=== PATIENT | male | born 1930 | race Caucasian/White ===

== ENCOUNTER 2016-11-15 20:23 | Inpatient (IN) | payer OTHER ==
--- NOTE | 2016-11-15 20:31 | PDOC ---
History of Present Illness - General History Source: Patient, Family Exam Limitations: No Limitations - History of Present Illness Initial Comments: 11/15/16 21:22 The patient is a 86 year old male with significant past medical history of CVA 2x, hypertension, hyperlipidemia, diabetes with peripheral neuropathy, BPH, and GERD who presents to the ED BIBA from home with changes in mental status prior to arrival. As per family, at bedside, patients last known well was around 6pm by his . Son states he saw patient earlier today and he was in his usual state of health. Just prior to arrival, patient called son when he noted he sounded disoriented and not himself. Family went to patients house and noted changes in mental status and states patient was confused. According to family, patient is alert and oriented at baseline. However, due to his history of strokes in the past, they became concerned and brought patient to the ER. At time of evaluation, patient has no complaints and denies blurry vision, dizziness, and headache. The patient denies fever, chills, cough, SOB, chest pain, and palpitations. The patient denies abdominal pain, nausea, vomiting, and diarrhea. Allergies: NKDA Social History: No alcohol, tobacco, or drug use reported. Past Surgical History: Hernia repair, cholecystectomy, pituitary mass removal ( several years ago) PCP: Dr. Wilian Zhou GI: Dr. Tristan Avalos <Eunice Tripp - Last Filed: 11/16/16 03:57> <Iliana Santizo - Last Filed: 11/16/16 05:07> - General Stated Complaint: POSSIBLE STROKE Time Seen by Provider: 11/15/16 20:30 Past History <Eunice Tripp - Last Filed: 11/16/16 03:57> - Past Medical History Anemia: No Asthma: No Cardiac Disorders: Yes (CAD) CVA: Yes (06/2012) COPD: No CHF: No Dementia: No Diabetes: Yes (IDDM) GI Disorders: Yes (GERD;DIVERTICULITIS; HEMORROIDS) Disorders: No HTN: Yes Hypercholesterolemia: No Liver Disease: No Suicide Attempt (Hx): No Seizures: No Thyroid Disease: No - Surgical History Abdominal Surgery: No Appendectomy: No Cardiac Surgery: No Cholecystectomy: No GI Surgery: Yes (Haital hernia 2004) Lung Surgery: No Neurologic Surgery: No - Immunization History Immunization Up to Date: Yes - Psycho/Social/Smoking Cessation Hx Anxiety: No Suicidal Ideation: No Smoking History: Never smoked Have you smoked in the past 12 months: No Hx Alcohol Use: No Drug/Substance Use Hx: No Substance Use Type: None <Iliana Santizo - Last Filed: 11/16/16 05:07> - Past Medical History Allergies/Adverse Reactions: Allergies Allergy/AdvReac Type Severity Reaction Status Date / Time No Known Allergies Allergy Verified 11/15/16 20:33 Home Medications: Ambulatory Orders Acetaminophen [Tylenol] 325 mg PO PRN PRN 11/15/16 Gabapentin [Neurontin] 300 mg PO BID 11/15/16 Losartan Potassium [Cozaar] 100 mg PO DAILY 11/15/16 Lubiprostone [Amitiza] 8 mcg PO DAILY 11/15/16 Metformin HCl [Metformin HCl ER] 500 mg PO DAILY 11/15/16 Metoprolol Succinate [Toprol Xl -] 25 mg PO DAILY 11/15/16 Rosuvastatin Calcium [Crestor] 40 mg PO DAILY 11/15/16 Solifenacin Succinate [Vesicare -] 10 mg PO DAILY 11/15/16 Tamsulosin HCl [Flomax -] 4 mg PO BID 11/15/16 Trazodone HCl 50 mg PO HS 11/15/16 Review of Systems - Review of Systems Able to Perform ROS?: Yes Comments:: 11/15/16 21:22 CONSTITUTIONAL: Absent: fever, chills, diaphoresis, generalized weakness, malaise, loss of appetite HEENT: Absent: rhinorrhea, nasal congestion, throat pain, throat swelling, difficulty swallowing, mouth swelling, ear pain, eye pain, visual Changes CARDIOVASCULAR: Absent: chest pain, syncope, palpitations, irregular heart rate, lightheadedness , peripheral edema RESPIRATORY: Absent: cough, shortness of breath, dyspnea with exertion, orthopnea, wheezing, stridor, hemoptysis GASTROINTESTINAL: Absent: abdominal pain, abdominal distension, nausea, vomiting, diarrhea, constipation, melena, hematochezia GENITOURINARY: Absent: dysuria, frequency, urgency, hesitancy, hematuria, flank pain, genital pain MUSCULOSKELETAL: Absent: myalgia, arthralgia, joint swelling SKIN: Absent: rash, itching, pallor NEUROLOGIC: +changes in mental status Absent: headache, focal weakness or paresthesias, dizziness, unsteady gait, seizure, bladder or bowel incontinence PSYCHIATRIC: Absent: anxiety, depression, suicidal or homicidal ideation, hallucinations. <JoseeEunice - Last Filed: 11/16/16 03:57> *Physical Exam - Vital Signs Last Vital Signs Temp Pulse Resp BP Pulse Ox 81 18 154/102 97 11/15/16 20:33 11/15/16 20:33 11/15/16 20:33 11/15/16 20:33 - Physical Exam Comments: 11/16/16 00:49 GENERAL: Well developed, well nourished. Awake and alert. No acute distress. HEENT: Normocephalic, atraumatic. PERRLA, EOMI. No conjunctival pallor. Sclera are non- icteric. Moist mucous membranes. Oropharynx is clear. NECK: Supple. Full ROM. No JVD. Carotid pulses 2+ and symmetric, without bruits. No thyromegaly. No lymphadenopathy. CARDIOVASCULAR: Regular rate and rhythm. No murmurs, rubs, or gallops. Distal pulses are 2+ and symmetric. PULMONARY: No evidence of respiratory distress. Lungs clear to auscultation bilaterally. No wheezing, rales or rhonchi. ABDOMINAL: Soft. Non-tender. Non-distended. No rebound or guarding. No organomegaly. Normoactive bowel sounds. MUSCULOSKELETAL Normal range of motion at all joints. No bony deformities or tenderness. No CVA tenderness. EXTREMITIES: No cyanosis. No clubbing. No edema. No calf tenderness. SKIN: Warm and dry. Normal capillary refill. No rashes. No jaundice. NEUROLOGICAL: Alert, awake, appropriate. Cranial nerves 2-12 intact. No deficits to light touch and temperature in face, upper extremities and lower extremities. No motor deficits in the in face, upper extremities and lower extremities. Normoreflexic in the upper and lower extremities. Normal speech. Moving all extremities. PSYCHIATRIC: Cooperative. Good eye contact. Appropriate mood and affect. <Eunice Tripp - Last Filed: 11/16/16 03:57> NIH Stroke Scale - Last Known Well Date/Time & Onset Date Last Known Well: 11/15/16 Time Last Known Well: 18:00 - Initial Evaluation Level of consciousness: Alert Ask patient the month and their age: Answers both correctly Ask patient to open & close eyes; make fist and let go: Obeys both correctly Best gaze (horizontal eye movement): Normal Visual field testing: No visual field loss Facial paresis (Show teeth/raise eyebrows/close eyes tight): Normal symmetrical movement Motor Function: Left Arm: Normal Motor Function: Right Arm: Normal (extends arm 90 (or 45) degrees for 10 seconds without drift Motor Function: Left Leg: Normal (extends leg 30 degrees for 5 seconds without drift) Motor Function: Right Leg: Normal (extends leg 30 degrees for 5 seconds without drift) Limb Ataxia: No ataxia Sensory(Use pinprick test arms,legs,trunk,face/side to side): Normal Best language (Describe picture, name items, read sentences): No Aphasia Dysarthria (read several words): Normal articulation Extinction and Inattention: No abnormality - Total Score NIH Stroke Scale Score: 0 <Iliana Santizo - Last Filed: 11/16/16 05:07> Heart Score/ECG Review - ECG Impressions Comment:: 11/16/16 03:57 Sinus rhythm with 1st degree AV block @76bpm Nonspecific T wave abnormality Abnormal ECG <Eunice Tripp - Last Filed: 11/16/16 03:57> Critical Care Time/MDM Note - Medical Decision Making Note: 11/15/16 21:35 CT/HEAD CT (STROKE) Radiologist's Impression: No CT evidence of intracranial hemorrhage. There is no acute infarct within the limitations of CT. A chronic left thalamic infarct is noted. This infarct was probably subacute at the time of a prior CT exam of . Mild periventricular microvascular ischemic gliosis is noted. As visualized on the previous CT study as well as on a brain MRI study of 2014 an approximately 1.7 cm soft tissue lesion is seen within the left lateral half of the sella turcica extending into the left cavernous sinus. Associated widening of the bony sella turcica is noted due to remodeling. There is mild suprasellar extension as on the prior study. 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 Correlate with serum prolactin level. No gross interval change is identified since the prior studies. No obstructive hydrocephalus. There is no extra-axial fluid collection. Impression: No definite CT evidence of acute pathology. Small chronic left thalamic infarct. Focal soft tissue enlargement involving the sella turcica and left cavernous sinus without gross interval change as discussed. <Eunice Tripp - Last Filed: 11/16/16 03:57> - Medical Decision Making Note: 11/16/16 01:35 P called his son and granddaughters and was not making sense. Family rushed to his home, and found that he was confused so they called EMS fearing that he had a stroke. Pt has a normal exam in the ER and he appears well. He will be admitted to telemetry for a stroke workup. Pt's CT scan is normal and labs are normal. Pt admitted to tele. He remains stable in the ER. EKG is NSR; 1st degree AV block CXR normal CT head WNL. Labs normal <Iliana Santizo - Last Filed: 11/16/16 05:07> Discharge Disposition - Post Discharge Activity Activity Comments: Documentation prepared by Eunice Tripp, acting as senior medical director for Iliana Santizo MD <Eunice Tripp - Last Filed: 11/16/16 03:57> - Discharge Dispostion Admit: Yes <Iliana Santizo - Last Filed: 11/16/16 05:07> - Diagnosis Cerebrovascular accident (CVA), Confusion and disorientation - Referrals
[2016-11-15 20:35] VITALS: BMI 27.2
[2016-11-15 22:45] LABS: BASOPHIL 0.5 % (0-2.0); EOSINOPHIL 0.8 % (0-4.5); MCH 29.2 pg (25.7-33.7); MCHC 32.8 g/dl (32.0-35.9); MEAN CELL VOLUME 89.1 fl (80-96); NEUTROPHILS 67.3 % (42.8-82.8); PLATELET COUNT 129 K/MM3 (134-434); RDW 15.1 % (11.9-15.9); WHITE BLOOD COUNT 6.8 K/mm3 (4.0-10.0)
[2016-11-15 22:51] LABS: URINE APPEARANCE CLEAR; URINE BILIRUBIN NEGATIVE (NEGATIVE); URINE BLOOD NEGATIVE (NEGATIVE); URINE COLOR STRAW; URINE GLUCOSE (UA) NEGATIVE (NEGATIVE); URINE KETONE NEGATIVE (NEGATIVE); URINE LEUK ESTERASE NEGATIVE (NEGATIVE); URINE NITRITE NEGATIVE (NEGATIVE); URINE PROTEIN NEGATIVE (NEGATIVE); URINE UROBILINOGEN NEGATIVE E.U./dl (0.2-1.0)
[2016-11-15 22:58] LABS: INR 1.06 (0.82-1.09); PROTHROMBIN TIME (PATIENT) 11.7 SEC (9.98-11.88)
[2016-11-15 23:15] LABS: ALBUMIN 3.5 g/dl (3.4-5.0); ANION GAP 8 (8-16); BILIRUBIN,TOTAL 0.7 mg/dL (0.2-1.0); CALCIUM 8.8 mg/dL (8.5-10.1); CO2 28 mmol/L (21-32); CREATININE 1.1 mg/dL (0.7-1.3); GLUCOSE,RANDOM 110 mg/dL (74-106); SGOT/AST 16 U/L (15-37); SGPT/ALT 17 U/L (12-78)
[2016-11-15 23:18] LABS: ALK PHOS 47 U/L (45-117); TROPONIN I < 0.02 ng/ml (0.00-0.05)
--- NOTE | 2016-11-15 23:45 | PN ---
[id number] and evaluated the patient. I reviewed the resident's note and discussed the case with the resident. I agree with the resident's findings and plan as documented. SUBJECTIVE: The patient is a 86 year old male with significant past medical history of CVA x2 (most recently 10/09), hypertension, hyperlipidemia, diabetes, peripheral neuropathy, and BPH who presented with altered mental status. Patient denies chest pain, chest pressure, blurry vision, dizziness, headache, and nausea. OBJECTIVE: Vital Signs: Last Vital Signs Temp Pulse Resp BP Pulse Ox 81 18 154/102 97 11/15/16 20:33 11/15/16 20:33 11/15/16 20:33 11/15/16 20:33 Physical Exam: GEN: NAD. Well nourished elderly male resting in bed. HEENT: NCAT, PERRL NEURO: Cranial nerves 2-12 intact. Muscle strength 5/5 in upper and lower extremities bilaterally. CARD: RRR, S1 S2 RESP: CTAB ABD: NT, BWS x4 EXT: - CCE Labs: CBCD WBC 6.8 K/mm3 (4.0-10.0) 11/15/16 22:33 RBC 4.98 M/mm3 (4.00-5.60) 11/15/16 22:33 Hgb 14.6 GM/dL (11.7-16.9) D 11/15/16 22:33 Hct 44.4 % (35.4-49) 11/15/16 22:33 MCV 89.1 fl (80-96) 11/15/16 22:33 MCHC 32.8 g/dl (32.0-35.9) 11/15/16 22:33 RDW 15.1 % (11.9-15.9) 11/15/16 22:33 Plt Count 129 K/MM3 (134-434) L D 11/15/16 22:33 MPV 9.0 fl (7.5-11.1) 11/15/16 22:33 CMP Sodium 143 mmol/L (136-145) 11/15/16 22:33 Potassium 4.1 mmol/L (3.5-5.1) 11/15/16 22:33 Chloride 107 mmol/L (98-107) 11/15/16 22:33 Carbon Dioxide 28 mmol/L (21-32) 11/15/16 22:33 Anion Gap 8 (8-16) 11/15/16 22:33 BUN 11 mg/dL (7-18) D 11/15/16 22:33 Creatinine 1.1 mg/dL (0.7-1.3) 11/15/16 22:33 Creat Clearance w eGFR > 60 (>60) 11/15/16 22:33 Calcium 8.8 mg/dL (8.5-10.1) 11/15/16 22:33 Total Bilirubin 0.7 mg/dL (0.2-1.0) 11/15/16 22:33 AST 16 U/L (15-37) 11/15/16 22:33 ALT 17 U/L (12-78) D 11/15/16 22:33 Alkaline Phosphatase 47 U/L (45-117) 11/15/16 22:33 Total Protein 6.0 g/dl (6.4-8.2) L 11/15/16 22:33 Albumin 3.5 g/dl (3.4-5.0) 11/15/16 22:33 Imaging: Head CT. Impression: No definite CT evidence of acute pathology. Small chronic left thalamic infarct. Focal soft tissue enlargement involving the sella turcica and left cavernous sinus without gross interval change as discussed. ECG. Impression: Normal sinus 1st deg block. Q waves in inferior leads. QTC 400. ASSESSMENT AND PLAN: The patient is a 86 year old male with significant past medical history of CVA x2, hypertension, hyperlipidemia, diabetes, peripheral neuropathy and BPH who presented with mental status changes, being admitted to stroke tele for possible CVA/TIA. 1.CVA/TIA -MRI Brain -ECHO -Carotid US -Continue with aspirin -Taken off Aggrenox (unknow why) -Lipid Panel -A1C -Continue with statin -Neuro consult -Stroke scale 0 2. Chest Pain -Heart score 5 -Trend Troponin/ECG -Cardiology consult -Nitro/Morphine PRN chest pain - Continue with statin and beta gricelda 3. HLD -Continue home medications -Continue statin 4. HTN Continue home medications 5. Diabetes -Finger sticks -Sliding scale 6. BPH Continue Flomax 7. DVT PPX -SCDs Admit to stroke tele. Documentation prepared by Waldo Jackson, acting as bilingual medical assistant for Dr. Deedee MD <Marko Mark - Last Filed: 11/16/16 06:18> Teaching Attending Note Name of Resident: Jackie Simmons
--- NOTE | 2016-11-16 00:12 | HP ---
Addendum entered and electronically signed by Jackie Simmons RES 11/16/16 03:30 : -Repeat Troponin negative -Patient's chest pain resolved after sublingual nitroglycerine -EKG revealed no changes from prior one done in the last 24 hours -Repeat Vitals: 98.1 F, 75 NJ, 135/89 mmHg, 18RR, and 98% on 2L NC -Will continue Cardiac monitoring Addendum entered and electronically signed by Jackie Simmons RES 11/16/16 02:45 : ER nurse called and informed us that patient is complaining of chest pain. I went down to the ED to evaluate patient who was complaining of left sided chest tightness that began suddenly. Patient reports he is very uncomfortable. However, patient denies shortness of breath, palpitations, or diaphoresis. On examination Heart was regular rate and rhythm with normal S1 and S2. Lungs were CTA bilaterally. Plan: Chest pain -STAT EKG -STAT Troponin -Sublingual Nitroglycerin 0.4mg given -Continue Cardiac monitoring -Repeat Vitals Original Note: CHIEF COMPLAINT: Confused and disoriented PCP: Dr. Wilian Zhou HISTORY OF PRESENT ILLNESS: Patient is an 86 year old male with a PMHx of HTN, HLD, DMII with peripheral neuropathy, CVA X2, GERD, and BPH who presented with acute vision change, disorientation and confusion. Patient's son at bedside who reports patient was in his usual state of health until 1744 today when he received a phone call from his with his father on the phone complaining of sudden blurry vision with confusion and disorientation while he was sitting down watching TV. Patient son reports that he usually dials his number on his own but today he was unable to recall his number. Symptoms of blurry vision, confusion and disorientation resolved within 15 minutes but the family was concerned due to previous CVA's and decided to bring him to the hospital. Patient at baseline is awake, alert, and completely oriented. When evaluating the patient, he denied any blurry vision, confusion, or disorientation. Patient also reports that this morning he went ot his PCP who prescribed him Metformin after stopping it for one year. Patient reports he took his first dose today and that he believes the Metformin caused him ot have this episode. Otherwise, he denies chest pain, palpitations, shortness of breath, fever, chills, nausea, vomiting, dizziness, lightheadedness, loss of consciousness, abnormal gait, numbness, tingling, headaches. ER course was notable for: (1) CT negative for acute pathology (2) (3) Recent Travel: No PAST MEDICAL HISTORY: HTN, HLD, DMII with peripheral neuropathy, CVA X2, GERD, and BPH PAST SURGICAL HISTORY: Hernia repair, cholecystectomy, pituitary mass removal Social History: Smoking: Denies Alcohol: Denies Drugs: Denies Family History: Denies Allergies: No Known Allergies Allergy (Verified 11/15/16 20:33) HOME MEDICATIONS: Medication Instructions Recorded Acetaminophen [Tylenol] 325 mg PO PRN PRN 11/15/16 Gabapentin [Neurontin] 300 mg PO BID 11/15/16 Losartan Potassium [Cozaar] 100 mg PO DAILY 11/15/16 Lubiprostone [Amitiza] 8 mcg PO DAILY 11/15/16 Metformin HCl [Metformin HCl ER] 500 mg PO DAILY 11/15/16 Metoprolol Succinate [Toprol Xl -] 25 mg PO DAILY 11/15/16 Rosuvastatin Calcium [Crestor] 40 mg PO DAILY 11/15/16 Solifenacin Succinate [Vesicare -] 10 mg PO DAILY 11/15/16 Tamsulosin HCl [Flomax -] 0.4 mg PO BID 11/15/16 Trazodone HCl 50 mg PO HS 11/15/16 REVIEW OF SYSTEMS CONSTITUTIONAL: Absent: fever, chills, diaphoresis, generalized weakness, malaise, loss of appetite, weight change HEENT: Present: Acute visual changes Absent: rhinorrhea, nasal congestion, throat pain, throat swelling, difficulty swallowing, mouth swelling, ear pain, eye pain CARDIOVASCULAR: Absent: chest pain, syncope, palpitations, irregular heart rate, lightheadedness , peripheral edema RESPIRATORY: Absent: cough, shortness of breath, dyspnea with exertion, orthopnea, wheezing, stridor, hemoptysis GASTROINTESTINAL: Absent: abdominal pain, abdominal distension, nausea, vomiting, diarrhea, constipation, melena, hematochezia GENITOURINARY: Absent: dysuria, frequency, urgency, hesitancy, hematuria, flank pain, genital pain MUSCULOSKELETAL: Absent: myalgia, arthralgia, joint swelling, back pain, neck pain SKIN: Absent: rash, itching, pallor HEMATOLOGIC/IMMUNOLOGIC: Absent: easy bleeding, easy bruising, lymphadenopathy, frequent infections ENDOCRINE: Absent: unexplained weight gain, unexplained weight loss, heat intolerance, cold intolerance NEUROLOGIC: Present: mental status changes Absent: headache, focal weakness or paresthesias, dizziness, unsteady gait, seizure, bladder or bowel incontinence PSYCHIATRIC: Absent: anxiety, depression, suicidal or homicidal ideation, hallucinations. PHYSICAL EXAMINATION Vital Signs - 24 hr 11/15/16 20:33 Pulse Rate 81 Respiratory 18 Rate Blood Pressure 154/102 O2 Sat by Pulse 97 Oximetry (%) GENERAL: Awake, alert, and fully oriented, in no acute distress. HEAD: Normal with no signs of trauma. EYES: Pupils equal, round and reactive to light, extraocular movements intact, sclera anicteric, conjunctiva clear. No lid lag. EARS, NOSE, THROAT: Ears normal, nares patent, oropharynx clear without exudates. Moist mucous membranes. NECK: Normal range of motion, supple without lymphadenopathy, JVD, or masses. LUNGS: Breath sounds equal, clear to auscultation bilaterally. No wheezes, and no crackles. No accessory muscle use. HEART: Regular rate and rhythm, normal S1 and S2 without murmur, rub or gallop. ABDOMEN: Soft, nontender, not distended, normoactive bowel sounds, no guarding, no rebound, no masses. No hepatomegaly or splenomegaly. MUSCULOSKELETAL: Normal range of motion at all joints. No bony deformities or tenderness. No CVA tenderness. UPPER EXTREMITIES: 2+ pulses, warm, well-perfused. No cyanosis. No clubbing. No peripheral edema. LOWER EXTREMITIES: 2+ pulses, warm, well-perfused. No calf tenderness. No peripheral edema. NEUROLOGICAL: Cranial nerves II-XII intact. No deficits to light touch and temperature in face, upper extremities and lower extremities. Motor strength 5/ 5 throughout with no deficits in the in face, upper extremities and lower extremities. Normoreflexic in the upper and lower extremities. Normal speech. Moving all extremities. PSYCHIATRIC: Cooperative. Good eye contact. Appropriate mood and affect. SKIN: Warm, dry, normal turgor, no rashes or lesions noted. Laboratory Results - last 24 hr 11/15/16 11/15/16 11/15/16 20:33 22:33 22:33 WBC 6.8 RBC 4.98 Hgb 14.6 D Hct 44.4 MCV 89.1 MCHC 32.8 RDW 15.1 Plt Count 129 L D MPV 9.0 Neutrophils % 67.3 Lymphocytes % 24.7 Monocytes % 6.7 Eosinophils % 0.8 Basophils % 0.5 INR Sodium Potassium Chloride Carbon Dioxide Anion Gap BUN Creatinine Creat Clearance w eGFR POC Glucometer 140.07114 Random Glucose Calcium Total Bilirubin AST ALT Alkaline Phosphatase Creatine Kinase Troponin I Total Protein Albumin Urine Color Straw Urine Appearance Clear Urine pH 6.0 Ur Specific [place]att 1.008 Urine Protein Negative Urine Glucose (UA) Negative Urine Ketones Negative Urine Blood Negative Urine Nitrite Negative Urine Bilirubin Negative Urine Urobilinogen Negative Ur Leukocyte Esterase Negative 11/15/16 11/15/16 22:33 22:33 WBC RBC Hgb Hct MCV MCHC RDW Plt Count MPV Neutrophils % Lymphocytes % Monocytes % Eosinophils % Basophils % INR 1.06 Sodium 143 Potassium 4.1 Chloride 107 Carbon Dioxide 28 Anion Gap 8 BUN 11 D Creatinine 1.1 Creat Clearance w eGFR > 60 POC Glucometer Random Glucose 110 H D Calcium 8.8 Total Bilirubin 0.7 AST 16 ALT 17 D Alkaline Phosphatase 47 Creatine Kinase 106 Troponin I < 0.02 Total Protein 6.0 L Albumin 3.5 Urine Color Urine Appearance Urine pH Ur Specific [place]att Urine Protein Urine Glucose (UA) Urine Ketones Urine Blood Urine Nitrite Urine Bilirubin Urine Urobilinogen Ur Leukocyte Esterase Head CT: No acute pathology. Small chronic left thalamic infarct. Focal soft tissue enlargement involving the sella turcica and left cavernous sinus without gross interval change as discussed. Chest X-ray: No acute pathology, (-) infiltrates, (-) effusions, no cardiomegaly. ASSESSMENT/PLAN: Patient is an 86 year old male with a PMHx of HTN, HLD, DMII with peripheral neuropathy, CVA X2, GERD, BPH, Anxiety/Depression who presented for altered mental status and acute blurry vision. Patient admitted to telemetry for further monitoring and management. Altered Mental Status with Blurry Vision -Possible CVA/TIA -Stroke Scale: 0 -Neurology consult placed -ASA 325mg daily -Home medication Crestor 40mg resumed -ECHO ordered -Carotid Doppler ordered -Brain MRI -Lipid Panel ordered -HBA1C ordered -Coagulations ordered -Patient was taken off Aggrenox by GI doctor with unknown reason according to patient HTN -Continue home medication Cozaar 100 mg daily -Continue Toprol XL 20mg daily HLD -Continue home medication Crestor 40mg daily -Lipid panel ordered DM II with Peripheral Neuropathy -Insulin sliding scale -BGM -Continue home medication Gabapentin 300mg BID -HBA1C ordered BPH -Continue Vesicare 10mg daily -Continue Flomax 0.4mg BID Anxiety/Depression -Continue Trazodone HCl 50mg daily F/E/N -On no fluids -Electrolytes wnl -Sodium/diabetes/cholesterol controlled diet Prophylaxis -SCD's for DVT -No GI needed Disposition -Full code -Will be monitored in telemetry. Awaiting for neurology evaluation and recommendations Visit type - Emergency Visit Emergency Visit: Yes ED Registration Date: 11/16/16 Care time: The patient presented to the Emergency Department on the above date and was hospitalized for further evaluation of their emergent condition. - New Patient This patient is new to me today: Yes Date on this admission: 11/16/16 - Critical Care Critical Care patient: No
[2016-11-16] MEDS ORDERED: NITROGLYCERIN SUBLINGUAL 1/150 0.4 MG TAB SL ONE (02:17)
[2016-11-16] MEDS: INSULIN SLIDING SCALE (NOVOLOG) 1 VIAL SQ SCH ×4 (07:03→21:01)
[2016-11-16 07:47] LABS: BASOPHIL 0.3 % (0-2.0); EOSINOPHIL 1.1 % (0-4.5); MCH 29.9 pg (25.7-33.7); MCHC 33.8 g/dl (32.0-35.9); MEAN CELL VOLUME 88.6 fl (80-96); MEAN PLT VOLUME 9.5 fl (7.5-11.1); PLATELET COUNT 122 K/MM3 (134-434)
[2016-11-16 07:51] LABS: INR 1.04 (0.82-1.09); PROTHROMBIN TIME (PATIENT) 11.4 SEC (9.98-11.88)
[2016-11-16 07:54] LABS: ACTIVATED PTT 32.4 SECONDS (26.9-34.4)
[2016-11-16 08:07] LABS: ALBUMIN 3.4 g/dl (3.4-5.0); ANION GAP 7 (8-16); CALCIUM 8.5 mg/dL (8.5-10.1); CHOLESTEROL 143 mg/dL (50-200); CO2 29 mmol/L (21-32); CREATININE 1.1 mg/dL (0.7-1.3); GLUCOSE,RANDOM 99 mg/dL (74-106); SGOT/AST 16 U/L (15-37); SGPT/ALT 18 U/L (12-78)
[2016-11-16 08:09] LABS: ALK PHOS 53 U/L (45-117); BILIRUBIN,TOTAL 0.7 mg/dL (0.2-1.0); LDL CHOLESTEROL (ONLY SJRH) 86 mg/dL (5-100); TOT PROT 6.1 g/dl (6.4-8.2)
[2016-11-16 08:11] LABS: TROPONIN I < 0.02 ng/ml (0.00-0.05)
[2016-11-16] MEDS ORDERED: PATIENT'S OWN MEDICATION (NON-FORMULARY) (Lubiprostone [Amitiza] 8 MCG) PO SCH (10:00)
[2016-11-16] MEDS ORDERED: TAMSULOSIN HCL 0.4 MG CAP.ER.24H (FP) PO SCH (10:00)
--- NOTE | 2016-11-16 10:23 | CONSULT ---
Consult Consult Specialty:: [facility] Referred by:: ER Reason for Consultation:: Vision problem - History of Present Illness History of Present Illness: 86 years old man with PMH 1. CAd 2. HTN, 3. HLD, 4. DMII with peripheral neuropathy, 5. CVA X2, 6. GERD, 7. 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 Cardio/Vascular: Yes: CAD, HTN Renal/: Yes: BPH Endocrine: Yes: Diabetes Mellitus - Alcohol/Substance Use Hx Alcohol Use: No - Smoking History Smoking history: Never smoked Have you smoked in the past 12 months: No Home Medications - Allergies Allergies/Adverse Reactions: Allergies Allergy/AdvReac Type Severity Reaction Status Date / Time No Known Allergies Allergy Verified 11/15/16 20:33 - Home Medications Home Medications: Ambulatory Orders Acetaminophen [Tylenol] 325 mg PO PRN PRN 11/15/16 Gabapentin [Neurontin] 300 mg PO BID 11/15/16 Losartan Potassium [Cozaar] 100 mg PO DAILY 11/15/16 Lubiprostone [Amitiza] 8 mcg PO DAILY 11/15/16 Metformin HCl [Metformin HCl ER] 500 mg PO DAILY 11/15/16 Metoprolol Succinate [Toprol Xl -] 25 mg PO DAILY 11/15/16 Rosuvastatin Calcium [Crestor] 40 mg PO DAILY 11/15/16 Solifenacin Succinate [Vesicare -] 10 mg PO DAILY 11/15/16 Tamsulosin HCl [Flomax -] 4 mg PO BID 11/15/16 Trazodone HCl 50 mg PO HS 11/15/16 Family Disease History - Family Disease History Family History: Unable to Obtain Review of Systems - Review of Systems Constitutional: reports: No Symptoms Eyes: reports: No Symptoms Physical Exam-Neuro Vital Signs: Vital Signs Temperature 98.1 F 11/16/16 00:12 Pulse Rate 69 11/16/16 08:25 Respiratory Rate 18 11/16/16 08:02 Blood Pressure 143/89 11/16/16 08:02 O2 Sat by Pulse Oximetry (%) 98 11/16/16 08:25 Constitutional: Yes: Well Nourished Neck: Yes: WNL Labs: CBC, BMP 11/16/16 06:30 11/16/16 06:30 INR, PTT INR 1.04 (0.82-1.09) 11/16/16 06:30 - Neuro Exam Level Of Consciousness: Yes: Oriented to Person, Oriented to Place, Oriented to Time Eyes: Yes: PERRLA Speech: WNL Dominant Hand: Right Cranial Nerves II-XII Intact: Yes Gag: Present DTR's: 0 Left Bicep, 0 Right Bicep, 0 Left Achilles, 0 Right Achilles, 1+ Left Brachioradialis, 1+ Right Brachioradialis Babinski: Absent Response to light touch: Abnormal Response to pain prick: Abnormal Response to temperature: Abnormal Response to vibration: Abnormal Imaging - Results Cat Scan: Image Reviewed Problem List - Problems (1) Cerebrovascular accident Code(s): I63.9 - CEREBRAL INFARCTION, UNSPECIFIED Assessment/Plan Patient was not a candidate for TPA 1. Neuro checks 2. MRI brain with no anabel 3 .Full ASA 4. Might need CTA 5. Lipid profile 5. Suggest optho eval 6. Tight BSL control 7. C peptide patient was not a candidate for TPA as symptoms resolved case discussed with son
--- NOTE | 2016-11-16 10:30 | EKG ---
Test Reason : Blood Pressure : / mmHG Vent. Rate : 076 BPM Atrial Rate : 076 BPM P-R Int : 274 ms QRS Dur : 088 ms QT Int : 376 ms P-R-T Axes : 044 023 047 degrees QTc Int : 423 ms SINUS RHYTHM WITH 1ST DEGREE A-V BLOCK NONSPECIFIC T WAVE ABNORMALITY ABNORMAL ECG WHEN COMPARED WITH ECG OF 24-JUN-2015 09:08, PREMATURE VENTRICULAR COMPLEXES ARE NO LONGER PRESENT BORDERLINE CRITERIA FOR INFERIOR INFARCT ARE NO LONGER PRESENT Confirmed by BRETT MCCORMICK MD ([id number]) on 11/16/2016 10:29:47 AM Referred By: Confirmed By:BRETT MCCORMICK MD
--- NOTE | 2016-11-16 10:52 | PN ---
Teaching Attending Note Name of Resident: Roberto Kim ATTENDING PHYSICIAN STATEMENT I saw and evaluated the patient. I reviewed the resident's note and discussed the case with the resident. I agree with the resident's findings and plan as documented. SUBJECTIVE: seen and evaluated at the bedside OBJECTIVE: mild weakness of right upper extremity when compared to left ASSESSMENT AND PLAN: 86 year old male with a PMHx of HTN, HLD, DMII with peripheral neuropathy, CVA X2, GERD, and BPH who presented with acute vision change, disorientation and confusion possibly due to TIA -pt is a good historian with what happened yesterday -states that symptoms lasted only a few seconds and then he was back to his baseline mental status -had no complaints at this time but has mild weakness of right upper extremity when compared to left -CT head negative -follow up carotid dopplers -follow up echo -follow up with Neuro attending for possible MRI -cont statin -cont ASA
--- NOTE | 2016-11-16 11:10 | PN ---
Physical Exam: SUBJECTIVE: Patient seen and examined at bedside in ER. Pt states he feels well currently and denies any symptoms at the moment. Denies N/V/F/C, dizziness, light-headedness, chest pain, palpitations, dysuria, or SOB. He states prior to coming to hospital he felt dizzy and had blurry vision for a few seconds and it resolved on its own. OBJECTIVE: Vital Signs Temperature 98.1 F 11/16/16 12:30 Pulse Rate 68 11/16/16 12:30 Respiratory Rate 18 11/16/16 12:30 Blood Pressure 152/94 11/16/16 12:30 O2 Sat by Pulse Oximetry (%) 98 11/16/16 12:15 GENERAL: The patient is awake, alert, and fully oriented, in no acute distress. HEAD: Normal with no signs of trauma. EYES: PERRL, extraocular movements intact, sclera anicteric, conjunctiva clear. No ptosis. ENT: Ears normal, nares patent, oropharynx clear without exudates, moist mucous membranes. NECK: Trachea midline, full range of motion, supple. LUNGS: Breath sounds equal, clear to auscultation bilaterally, no wheezes, no crackles, no accessory muscle use. HEART: Regular rate and rhythm, S1, S2 without murmur, rub or gallop. ABDOMEN: Soft, nontender, nondistended, normoactive bowel sounds, no guarding, no rebound, no hepatosplenomegaly, no masses. EXTREMITIES: 2+ pulses, warm, well-perfused, no edema. MSK: RUE 4/5 strength. LUE 5/5 strength. NEUROLOGICAL: Normal speech, gait not observed. PSYCH: Normal mood, normal affect. SKIN: Warm, dry, normal turgor, no rashes or lesions noted Laboratory Results - last 24 hr 11/16/16 11/16/16 11/16/16 02:34 06:30 06:30 WBC 6.0 RBC 4.82 Hgb 14.4 Hct 42.7 MCV 88.6 MCHC 33.8 RDW 15.0 Plt Count 122 L MPV 9.5 Neutrophils % 63.0 Lymphocytes % 28.5 Monocytes % 7.1 Eosinophils % 1.1 Basophils % 0.3 INR 1.04 PTT (Actin FS) 32.4 Sodium Potassium Chloride Carbon Dioxide Anion Gap BUN Creatinine Creat Clearance w eGFR POC Glucometer Random Glucose Hemoglobin A1c % Calcium Total Bilirubin AST ALT Alkaline Phosphatase Creatine Kinase Troponin I < 0.02 Total Protein Albumin Triglycerides Cholesterol Total LDL Cholesterol HDL Cholesterol 11/16/16 11/16/16 11/16/16 06:30 06:30 06:30 WBC RBC Hgb Hct MCV MCHC RDW Plt Count MPV Neutrophils % Lymphocytes % Monocytes % Eosinophils % Basophils % INR PTT (Actin FS) Sodium 143 Potassium 4.1 Chloride 107 Carbon Dioxide 29 Anion Gap 7 L BUN 10 Creatinine 1.1 Creat Clearance w eGFR > 60 POC Glucometer Random Glucose 99 Hemoglobin A1c % 6.7 H Calcium 8.5 Total Bilirubin 0.7 AST 16 ALT 18 Alkaline Phosphatase 53 Creatine Kinase 85 Troponin I < 0.02 Total Protein 6.1 L Albumin 3.4 Triglycerides 164 H Cholesterol 143 Total LDL Cholesterol 86 HDL Cholesterol 31 L 11/16/16 06:51 WBC RBC Hgb Hct MCV MCHC RDW Plt Count MPV Neutrophils % Lymphocytes % Monocytes % Eosinophils % Basophils % INR PTT (Actin FS) Sodium Potassium Chloride Carbon Dioxide Anion Gap BUN Creatinine Creat Clearance w eGFR POC Glucometer 102.83554 Random Glucose Hemoglobin A1c % Calcium Total Bilirubin AST ALT Alkaline Phosphatase Creatine Kinase Troponin I Total Protein Albumin Triglycerides Cholesterol Total LDL Cholesterol HDL Cholesterol Active Medications Generic Name Dose Route Start Last Admin Trade Name Freq PRN Reason Stop Dose Admin Aspirin 325 mg 11/16/16 10:00 Asa - PO DAILY [facility] Gabapentin 300 mg 11/16/16 10:00 Neurontin - PO BID [facility] Insulin Aspart 1 vial 11/16/16 07:00 11/16/16 07:03 Novolog Vial Sliding Scale - SQ Not Given ACHS [facility] Protocol Losartan Potassium 100 mg 11/16/16 10:00 Cozaar - PO DAILY [facility] Metoprolol Succinate 25 mg 11/16/16 10:00 Toprol Xl - PO DAILY [facility] Non-Formulary Medication 8 mcg 11/16/16 10:00 Lubiprostone [Amitiza] PO DAILY [facility] Rosuvastatin Calcium 40 mg 11/16/16 22:00 Crestor - PO HS [facility] Solifenacin 10 mg 11/16/16 10:00 Vesicare - PO DAILY [facility] Tamsulosin HCl 0.4 mg 11/16/16 08:30 Flomax - PO BID@0830,2200 [facility] Trazodone HCl 50 mg 11/16/16 22:00 Desyrel - PO [facility] ASSESSMENT/PLAN: Patient is an 86 year old male with a PMHx of HTN, HLD, DMII with peripheral neuropathy, CVA X2, GERD, BPH, Anxiety/Depression who presented for altered mental status and acute blurry vision. -AMS secondary to most likely CVA/TIA -head ct negative for acute pathology -carotid U/S - no hemodynamically significant stenosis B/L -EKG: Sinus rhythm with 1st degree block. -f/u Echo, MRI brain w/o contrast -c/w crestor 40 mg PO qhs -c/w ASA 325 mg PO qd -pt is back at baseline mental status -neuro and cardio on board -HTN -c/w cozaar 100mg po qd, toprol xl 25 mg po qd -HLD -c/w crestor 40 mg po qhs -lipids: -cholesterol 143, HDL 31, LDL 86 -DM II -A1C: 6.7 -ISS, BGMs -Peripheral neuropathy -c/w gabapentin 300 mg PO bid -BPH -Cc/w Vesicare 10mg daily -c/w Flomax 0.4mg BID -Anxiety/Depression -c/w Trazodone HCl 50mg daily -FEN -sodium/diabetes/cholesterol controlled diet -DVT ppx -SCDs -Dispo: -Monitor on floors. Awaiting results of MRI and Echo as of now. Problem List - Problems (1) Cerebrovascular accident (CVA) Code(s): I63.9 - CEREBRAL INFARCTION, UNSPECIFIED (2) Confusion and disorientation Code(s): F99 - MENTAL DISORDER, NOT OTHERWISE SPECIFIED (3) Cerebrovascular accident Code(s): I63.9 - CEREBRAL INFARCTION, UNSPECIFIED (4) Diabetes Code(s): E11.9 - TYPE 2 DIABETES MELLITUS WITHOUT COMPLICATIONS (5) HTN (hypertension) Code(s): I10 - ESSENTIAL (PRIMARY) HYPERTENSION Visit type - Emergency Visit Emergency Visit: Yes ED Registration Date: 11/16/16 Care time: The patient presented to the Emergency Department on the above date and was hospitalized for further evaluation of their emergent condition. - New Patient This patient is new to me today: Yes Date on this admission: 11/16/16 - Critical Care Critical Care patient: No
--- NOTE | 2016-11-16 11:15 | CONSULT ---
Consult Consult Specialty:: Cardiology - History of Present Illness History of Present Illness: The patient is a 86 year old male with significant past medical history of CVA 2x, hypertension, hyperlipidemia, diabetes with peripheral neuropathy, BPH, and GERD who presents to the ED BIBA from home with changes in mental status prior to arrival. As per family, at bedside, patients last known well was around 6pm by his . Son states he saw patient earlier today and he was in his usual state of health. Just prior to arrival, patient called son when he noted he sounded disoriented and not himself. Family went to patients house and noted changes in mental status and states patient was confused. According to family, patient is alert and oriented at baseline. However, due to his history of strokes in the past, they became concerned and brought patient to the ER. At time of evaluation, patient has no complaints and denies blurry vision, dizziness, and headache. The patient denies fever, chills, cough, SOB, chest pain, and palpitations. The patient denies abdominal pain, nausea, vomiting, and diarrhea. Allergies: NKDA Social History: No alcohol, tobacco, or drug use reported. Past Surgical History: Hernia repair, cholecystectomy, pituitary mass removal ( several years ago) PCP: Dr. Wilian Zhou GI: Dr. 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 Cardio/Vascular: Yes: CAD, HTN Renal/: Yes: BPH Endocrine: Yes: Diabetes Mellitus - Alcohol/Substance Use Hx Alcohol Use: No - Smoking History Smoking history: Never smoked Have you smoked in the past 12 months: No Home Medications - Allergies Allergies/Adverse Reactions: Allergies Allergy/AdvReac Type Severity Reaction Status Date / Time No Known Allergies Allergy Verified 11/15/16 20:33 - Home Medications Home Medications: Ambulatory Orders Acetaminophen [Tylenol] 325 mg PO PRN PRN 11/15/16 Gabapentin [Neurontin] 300 mg PO BID 11/15/16 Losartan Potassium [Cozaar] 100 mg PO DAILY 11/15/16 Lubiprostone [Amitiza] 8 mcg PO DAILY 11/15/16 Metformin HCl [Metformin HCl ER] 500 mg PO DAILY 11/15/16 Metoprolol Succinate [Toprol Xl -] 25 mg PO DAILY 11/15/16 Rosuvastatin Calcium [Crestor] 40 mg PO DAILY 11/15/16 Solifenacin Succinate [Vesicare -] 10 mg PO DAILY 11/15/16 Tamsulosin HCl [Flomax -] 4 mg PO BID 11/15/16 Trazodone HCl 50 mg PO HS 11/15/16 Review of Systems - Review of Systems Constitutional: reports: No Symptoms Eyes: reports: No Symptoms HENT: reports: No Symptoms Neck: reports: No Symptoms Cardiovascular: reports: Chest Pain Gastrointestinal: reports: No Symptoms Genitourinary: reports: No Symptoms Breasts: reports: No Symptoms Reported Musculoskeletal: reports: No Symptoms Integumentary: reports: No Symptoms Neurological: reports: No Symptoms Endocrine: reports: No Symptoms Hematology/Lymphatic: reports: No Symptoms Psychiatric: reports: No Symptoms Vital Signs: Vital Signs Temperature 98.1 F 11/16/16 00:12 Pulse Rate 69 11/16/16 08:25 Respiratory Rate 18 11/16/16 08:02 Blood Pressure 143/89 11/16/16 08:02 O2 Sat by Pulse Oximetry (%) 98 11/16/16 08:25 Constitutional: Yes: Well Nourished, No Distress, Calm Eyes: Yes: WNL, Conjunctiva Clear, EOM Intact HENT: Yes: WNL, Atraumatic, Normocephalic Neck: Yes: WNL, Supple, Trachea Midline Respiratory: Yes: WNL, Regular, CTA Bilaterally Gastrointestinal: Yes: WNL, Normal Bowel Sounds Renal/: Yes: WNL Cardiovascular: Yes: WNL, Regular Rate and Rhythm Musculoskeletal: Yes: WNL Extremities: Yes: WNL Integumentary: Yes: WNL Neurological: Yes: WNL, Alert, Oriented ...Motor Strength: WNL Psychiatric: Yes: WNL, Alert, Oriented - Other Data Labs, Other Data: CBC, BMP 11/16/16 06:30 11/16/16 06:30 INR, PTT INR 1.04 (0.82-1.09) 11/16/16 06:30 Troponin, BNP 11/16/16 11/16/16 02:34 06:30 Troponin I < 0.02 < 0.02 Troponin, BNP 11/16/16 11/16/16 02:34 06:30 Troponin I < 0.02 < 0.02 Imaging - Results Chest X-ray: Image Reviewed (no i/e) EKG: Pending Problem List - Problems (1) Cerebrovascular accident (CVA) Code(s): I63.9 - CEREBRAL INFARCTION, UNSPECIFIED (2) Confusion and disorientation Code(s): F99 - MENTAL DISORDER, NOT OTHERWISE SPECIFIED (3) Cerebrovascular accident Code(s): I63.9 - CEREBRAL INFARCTION, UNSPECIFIED (4) Diabetes Code(s): E11.9 - TYPE 2 DIABETES MELLITUS WITHOUT COMPLICATIONS (5) HTN (hypertension) Code(s): I10 - ESSENTIAL (PRIMARY) HYPERTENSION (6) Left arm numbness Code(s): R20.0 - ANESTHESIA OF SKIN (7) Rectal bleed Code(s): K62.5 - HEMORRHAGE OF ANUS AND RECTUM Assessment/Plan cva dm htn chest pain hld plan echo telemetry EKG stat f/u neuro
[2016-11-16] MEDS: TAMSULOSIN HCL 0.4 MG CAP.ER.24H (FP) PO SCH ×2 (11:20→21:00)
[2016-11-16] MEDS: ASPIRIN 325 MG TABLET PO SCH (11:21)
[2016-11-16] MEDS: GABAPENTIN 300 MG CAPSULE (FP) PO SCH ×2 (11:21→21:00)
[2016-11-16] MEDS: LOSARTAN POTASSIUM 50 MG TABLET (FP) PO SCH (11:21)
[2016-11-16] MEDS: METOPROLOL SUCCINATE 25 MG TAB.SR.24H (FP) PO SCH (11:21)
[2016-11-16] MEDS: SOLIFENACIN SUCCINATE 5 MG TAB (FP) PO SCH (11:21)
--- NOTE | 2016-11-16 11:53 | EKG ---
Test Reason : Blood Pressure : / mmHG Vent. Rate : 076 BPM Atrial Rate : 076 BPM P-R Int : 292 ms QRS Dur : 092 ms QT Int : 356 ms P-R-T Axes : 036 -22 027 degrees QTc Int : 400 ms SINUS RHYTHM WITH 1ST DEGREE A-V BLOCK INFERIOR INFARCT (CITED ON OR BEFORE 24-JUN-2015) ABNORMAL ECG WHEN COMPARED WITH ECG OF 24-JUN-2015 09:08, PREMATURE VENTRICULAR COMPLEXES ARE NO LONGER PRESENT Confirmed by BRETT MCCORMICK MD ([id number]) on 11/16/2016 11:53:08 AM Referred By: Confirmed By:BRETT MCCORMICK MD
[2016-11-16] MEDS ORDERED: traZODone HCL 50 MG TABLET (FP) PO SCH (22:00)
[2016-11-16] MEDS ORDERED: ROSUVASTATIN CA 20 MG TABLET (FP) PO SCH (22:00)
[2016-11-16] MEDS ORDERED: ACETAMINOPHEN 500 MG TABLET (FP) PO ONE (22:28)
[2016-11-16] MEDS ORDERED: DOCUSATE SODIUM 100 MG CAPSULE (FP) PO ONE (22:32)
[2016-11-17] MEDS: INSULIN SLIDING SCALE (NOVOLOG) 1 VIAL SQ SCH (06:07)
[2016-11-17] MEDS: ASPIRIN 325 MG TABLET PO SCH (10:35)
[2016-11-17] MEDS: LOSARTAN POTASSIUM 50 MG TABLET (FP) PO SCH (10:35)
[2016-11-17] MEDS: TAMSULOSIN HCL 0.4 MG CAP.ER.24H (FP) PO SCH (10:35)
[2016-11-17] MEDS: METOPROLOL SUCCINATE 25 MG TAB.SR.24H (FP) PO SCH (10:37)
[2016-11-17] MEDS: SOLIFENACIN SUCCINATE 5 MG TAB (FP) PO SCH (10:38)
[2016-11-17] MEDS: GABAPENTIN 300 MG CAPSULE (FP) PO SCH (10:38)
--- NOTE | 2016-11-17 10:46 | PN ---
Teaching Attending Note Name of Resident: Roberto Kim ATTENDING PHYSICIAN STATEMENT I saw and evaluated the patient. I reviewed the resident's note and discussed the case with the resident. I agree with the resident's findings and plan as documented. SUBJECTIVE: seen and evaluated at the bedside OBJECTIVE: mild weakness of right upper extremity when compared to left ASSESSMENT AND PLAN: 86 year old male with a PMHx of HTN, HLD, DMII with peripheral neuropathy, CVA X2, GERD, and BPH who presented with acute vision change, disorientation and confusion possibly due to TIA -pt is a good historian with what happened during episode -states that symptoms lasted only a few seconds and then he was back to his baseline mental status -had no complaints at this time but has mild weakness of right upper extremity when compared to left -CT head negative -carotid dopplers have no significant stenosis -2D echo shows no valvular vegetations/no thrombi -MRI shows no acute infarct and 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
[2016-11-17 10:47] VITALS: BP 127/80; PULSE 72; TEMP 97.5
--- NOTE | 2016-11-17 11:28 | DS ---
Physical Exam: SUBJECTIVE: Patient seen and examined at bedside. has no complaints today. Denies any N/V/F/C, CP, SOB, dizziness, vision changes palpitations. OBJECTIVE: Vital Signs Temperature 97.5 F L 11/17/16 10:46 Pulse Rate 72 11/17/16 10:46 Respiratory Rate 20 11/17/16 10:46 Blood Pressure 127/80 11/17/16 10:46 O2 Sat by Pulse Oximetry (%) 96 11/16/16 21:00 PHYSICAL EXAM GENERAL: The patient is awake, alert, and fully oriented, in no acute distress. HEAD: Normal with no signs of trauma. EYES: PERRL, extraocular movements intact, sclera anicteric, conjunctiva clear. No ptosis. ENT: Ears normal, nares patent, oropharynx clear without exudates, moist mucous membranes. NECK: Trachea midline, full range of motion, supple. LUNGS: Breath sounds equal, clear to auscultation bilaterally, no wheezes, no crackles, no accessory muscle use. HEART: Regular rate and rhythm, S1, S2 without murmur, rub or gallop. ABDOMEN: Soft, nontender, nondistended, normoactive bowel sounds, no guarding, no rebound, no hepatosplenomegaly, no masses. EXTREMITIES: 2+ pulses, warm, well-perfused, no edema. MSK: RUE 4/5 strength. LUE 5/5 strength. NEUROLOGICAL: Normal speech, gait not observed. PSYCH: Normal mood, normal affect. SKIN: Warm, dry, normal turgor, no rashes or lesions noted LABS Laboratory Results - last 24 hr 11/16/16 11/16/16 11/16/16 11:34 13:05 13:05 POC Glucometer 99.51327 Hemoglobin A1c % Ammonia 15.04 Creatine Kinase Vitamin B12 344 11/16/16 11/16/16 11/17/16 17:23 20:54 05:29 POC Glucometer 139 134 124 Hemoglobin A1c % Ammonia Creatine Kinase Vitamin B12 11/17/16 11/17/16 05:35 05:35 POC Glucometer Hemoglobin A1c % 6.6 H D Ammonia Creatine Kinase 68 Vitamin B12 HOSPITAL COURSE: Date of Admission:11/16/16 Date of Discharge: 11/17/16 86 y/o M with PMH of HTN, HLD, DMII with peripheral neuropathy, CVA X2, GERD, and BPH presented with acute vision change and disorientation that lasted for a few seconds in the morning. Pt did not have the symptoms in the ER or on the floors while admitted. Seen by director educational radio and neurologist. We were concerned about hypoglycemic episode, CVA, TIA, arryhthmia. EKG showed sinus rhythm with 1st degree block. Head CT and MRI brain were negative for acute pathology. 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 Echo of heart was unremarkable for any causes of disorientation. CXR was also negative for any acute pathology. Labs were also negative and blood sugar in ER was 140 via fingerstick upon arrival. Most likely cause may be hypoglycemic episode. He will follow up with Dr. James in 2 weeks. No changes in home meds. Minutes to complete discharge: 30 Discharge Summary Reason For Visit: CVA CONFUSION AND DISORIENTATION Current Active Problems Cerebrovascular accident (CVA) (Acute) Confusion and disorientation (Acute) Condition: Stable - Instructions Diet, Activity, Other Instructions: low salt, low carbohydrates, low fat diet Referrals: Wilian Zhou MD [Primary Care Provider] - 2 Weeks Disposition: HOME - Home Medications Comprehensive Discharge Medication List: Ambulatory Orders Acetaminophen [Tylenol] 325 mg PO PRN PRN 11/15/16 Gabapentin [Neurontin] 300 mg PO BID 11/15/16 Losartan Potassium [Cozaar] 100 mg PO DAILY 11/15/16 Lubiprostone [Amitiza] 8 mcg PO DAILY 11/15/16 Metformin HCl [Metformin HCl ER] 500 mg PO DAILY 11/15/16 Metoprolol Succinate [Toprol XL -] 25 mg PO DAILY 11/15/16 Rosuvastatin Calcium [Crestor] 40 mg PO DAILY 11/15/16 Solifenacin Succinate [Vesicare -] 10 mg PO DAILY 11/15/16 Tamsulosin HCl [Flomax -] 4 mg PO BID 11/15/16 Trazodone HCl 50 mg PO HS 11/15/16 Problem List - Problems (1) Cerebrovascular accident (CVA) Code(s): I63.9 - CEREBRAL INFARCTION, UNSPECIFIED (2) Confusion and disorientation Code(s): F99 - MENTAL DISORDER, NOT OTHERWISE SPECIFIED (3) Cerebrovascular accident Code(s): I63.9 - CEREBRAL INFARCTION, UNSPECIFIED (4) Diabetes Code(s): E11.9 - TYPE 2 DIABETES MELLITUS WITHOUT COMPLICATIONS (5) HTN (hypertension) Code(s): I10 - ESSENTIAL (PRIMARY) HYPERTENSION This patient is new to me today: Yes Date on this admission: 11/17/16 Emergency Visit: No Critical Care patient: No - Discharge Referral Referred to [facility] No
[2016-11-18 06:06] LABS: PROLACTIN 27.5 ng/mL (4.0-15.2)
[2016-11-19 00:06] LABS: ALDOLASE 5.5 U/L (3.3-10.3); HOMOCYSTEINE (CARDIO) 8.3 umol/L (0.0-15.0)
== END 2016-11-17 11:42 | disposition home or self-care (01) | DRG 639 ==
LOC: JER 20:23 → JERBED 11-16 00:15 → UNDOADMIN 11-16 00:53 → JERBED 11-16 00:53 → J4S 11-16 12:53
PROVIDERS: ADMIT Internal Medicine; ATTEND Internal Medicine
DX: E11.649 Type 2 diabetes mellitus with hypoglycemia without coma (principal); E11.42 Type 2 diabetes mellitus with diabetic polyneuropathy; Z86.73 Personal history of transient ischemic attack (TIA), and cerebral infarction without residual deficits; I10 Essential (primary) hypertension; E78.5 Hyperlipidemia, unspecified; N40.0 Benign prostatic hyperplasia without lower urinary tract symptoms; K21.9 Gastro-esophageal reflux disease without esophagitis; I25.10 Atherosclerotic heart disease of native coronary artery without angina pectoris; H53.8 Other visual disturbances; F41.8 Other specified anxiety disorders
CPT/HCPCS: 36415; 70450-TC; 70551-TC; 71010-TC; 80053; 80061; 81003; 82085; 82140; 82550; 82607; 83036; 83090; 83721; 84146; 84484; 85025; 85610; 85730; 86038; 86593; 93005; 93010; 93306-TC; 93880-TC; 99285-25

== ENCOUNTER 2017-08-23 12:36 | Emergency (ER) | payer OTHER ==
[2017-08-23 12:41] VITALS: BMI 28.5
[2017-08-23] MEDS ORDERED: SODIUM CHLORIDE 500 ML IV STA (13:01)
[2017-08-23] MEDS ORDERED: MECLIZINE HCL 25 MG TABLET (FP) PO ONE (13:01)
--- NOTE | 2017-08-23 13:07 | PDOC ---
History of Present Illness - General Chief Complaint: Lightheaded Stated Complaint: HEADACHE Time Seen by Provider: 08/23/17 12:53 History Source: Patient - History of Present Illness Associated Symptoms: denies: chest pain, headaches, nausea/vomiting, shortness of breath, syncope, weakness Past History - Past Medical History Allergies/Adverse Reactions: Allergies Allergy/AdvReac Type Severity Reaction Status Date / Time No Known Allergies Allergy Verified 08/23/17 13:44 Home Medications: Ambulatory Orders Gabapentin [Neurontin] 300 mg PO BID 11/15/16 Losartan Potassium [Cozaar] 100 mg PO DAILY 11/15/16 Rosuvastatin Calcium [Crestor] 40 mg PO DAILY 11/15/16 Tamsulosin HCl [Flomax -] 4 mg PO BID 11/15/16 Amlodipine Besylate 10 mg PO DAILY 08/23/17 Meclizine HCl [Antivert -] 25 mg PO QID #28 tablet 08/23/17 Anemia: No Asthma: No Cardiac Disorders: Yes (CAD) CVA: Yes (06/2012) COPD: No CHF: No Dementia: No Diabetes: Yes (IDDM) GI Disorders: Yes (GERD;DIVERTICULITIS; HEMORROIDS) Disorders: No HTN: Yes Hypercholesterolemia: No Liver Disease: No Seizures: No Thyroid Disease: No - Surgical History Abdominal Surgery: Yes (HERNIA) Appendectomy: No Cardiac Surgery: No Cholecystectomy: No GI Surgery: Yes (Haital hernia 2004) Lung Surgery: No Neurologic Surgery: No - Immunization History Immunization Up to Date: Yes - Suicide/Smoking/Psychosocial Hx Smoking History: Never smoked Have you smoked in the past 12 months: No Hx Alcohol Use: No Drug/Substance Use Hx: No Substance Use Type: None Review of Systems - Review of Systems Constitutional: No: Chills, Fever Respiratory: No: Cough, Shortness of Breath Cardiac (ROS): Yes: Lightheadedness. No: Chest Pain, Palpitations, Syncope ABD/GI: No: Nausea, Vomiting Neurological: Yes: Dizziness. No: Headache *Physical Exam - Vital Signs Last Vital Signs Temp Pulse Resp BP Pulse Ox 98.4 F 71 20 159/98 98 08/23/17 12:37 08/23/17 12:37 08/23/17 12:37 08/23/17 12:37 08/23/17 12:37 - Physical Exam General Appearance: Yes: Appropriately Dressed. No: Apparent Distress HEENT: positive: Normal Voice Neck: positive: Supple Respiratory/Chest: positive: Lungs Clear, Normal Breath Sounds. negative: Respiratory Distress Cardiovascular: positive: Regular Rate, S1, S2 Gastrointestinal/Abdominal: positive: Soft. negative: Tender Extremity: positive: Normal Inspection Integumentary: positive: Dry, Warm Neurologic: positive: Fully Oriented, Alert, Normal Mood/Affect, Motor Strength 5/5, Finger to Nose (no atxia but reports some dizziness upon standing). 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 Patient reports that for the past several days, he's had intermitent sensation of the room spinning mostly while standing/walking. States symptoms usually last for several minutes and spntaneously resolves. Denies headache, visual changes, slurred speech, focal weakness and no chest pain or shortness of breath. No recent uri sxs. Does not usually check sugar at home. PMD: Dr Calderon See exam Intermittent vertigo h/o CVA w/ no residual Well andrew and stable w/ no focal deficits Low suspicion for CVA, possibly peripheral, less likely CAD, r/o metabolic source, i.e hypoglycemia -orthostatic -meclizine -IVF -labs -CT head -Possible MRI -dispo pending 08/23/17 13:08 08/23/17 14: Labs unremarkable. Patient reports significant improvement with meclizine 08/23/17 15:05 Case discussed with staff in Dr. Frazier's office and appt made for pt for 11am tomorrow, if pt is to be discharged from ED 08/23/17 15:29 Ct read as no acute pathology. Patient remains asymptomatic and well- appearing. Will discharge to follow-up with Dr. Calderon in the am. ED attg aware. Pt discharged in stable condition in care of [id number] 08/23/17 15:34 *DC/Admit/Observation/Transfer Diagnosis at time of Disposition: Vertigo - Discharge Dispostion Disposition: HOME Condition at time of disposition: Improved - Prescriptions Prescriptions: Meclizine HCl [Antivert -] 25 mg PO QID #28 tablet - Referrals Referrals: Wilian Zhou MD [Primary Care Provider] - - Patient Instructions Printed Discharge Instructions: Vertigo Additional Instructions: Your labs and head CT were normal Take meclizine as directed for dizziness. You have an appointment to see Dr. Wilman Elaine tomorrow at 11 AM. Please follow- up If symptoms persist and/or worsen, please return to ER immediately
[2017-08-23] MEDS ORDERED: MECLIZINE HCL 25 MG TABLET (FP) ONE (13:38)
[2017-08-23 13:45] LABS: BASOPHIL 0.5 % (0-2.0); MCH 28.3 pg (25.7-33.7); MCHC 32.7 g/dl (32.0-35.9); MEAN CELL VOLUME 86.6 fl (80-96); MEAN PLT VOLUME 9.3 fl (7.5-11.1); NEUTROPHILS 63.2 % (42.8-82.8); PLATELET COUNT 140 K/MM3 (134-434); RDW 14.3 % (11.9-15.9); WHITE BLOOD COUNT 5.1 K/mm3 (4.0-10.0)
[2017-08-23 14:10] LABS: ALBUMIN 3.9 g/dl (3.4-5.0); ALK PHOS 65 U/L (45-117); ANION GAP 10 (8-16); BILIRUBIN,TOTAL 0.7 mg/dL (0.2-1.0); CALCIUM 8.9 mg/dL (8.5-10.1); CO2 27 mmol/L (21-32); GLUCOSE,RANDOM 92 mg/dL (74-106); SGPT/ALT 24 U/L (12-78); TOT PROT 7.4 g/dl (6.4-8.2)
[2017-08-23 14:11] LABS: CPK 157 IU/L (39-308); TROPONIN I < 0.02 ng/ml (0.00-0.05)
[2017-08-23 14:13] LABS: SGOT/AST 21 U/L (15-37)
[2017-08-23 14:40] LABS: URINE APPEARANCE CLEAR; URINE BILIRUBIN NEGATIVE (NEGATIVE); URINE BLOOD NEGATIVE (NEGATIVE); URINE COLOR COLORLESS; URINE GLUCOSE (UA) NEGATIVE (NEGATIVE); URINE KETONE NEGATIVE (NEGATIVE); URINE NITRITE NEGATIVE (NEGATIVE); URINE PROTEIN NEGATIVE (NEGATIVE); URINE UROBILINOGEN NEGATIVE mg/dL (0.2-1.0)
[2017-08-23 15:50] VITALS: BP 148/78; PULSE 89; TEMP 97.2
[2017-08-23 20:31] LABS: URINE LEUK ESTERASE Negative (NEGATIVE)
--- NOTE | 2017-08-24 10:43 | EKG ---
Test Reason : Blood Pressure : / mmHG Vent. Rate : 064 BPM Atrial Rate : 064 BPM P-R Int : 290 ms QRS Dur : 098 ms QT Int : 414 ms P-R-T Axes : 034 001 033 degrees QTc Int : 427 ms SINUS RHYTHM WITH 1ST DEGREE A-V BLOCK INFERIOR INFARCT , AGE UNDETERMINED ABNORMAL ECG WHEN COMPARED WITH ECG OF 16-NOV-2016 02:25, INFERIOR INFARCT IS NOW PRESENT Confirmed by DAYNE CRUZ, MCKAYLA ([id number]) on 08/24/2017 10:42:42 AM Referred By: Confirmed By:MCKAYLA OSCAR MD
== END 2017-08-23 15:48 | disposition home or self-care (01) ==
LOC: JER 12:36
DX: R42 Dizziness and giddiness (principal); I25.10 Atherosclerotic heart disease of native coronary artery without angina pectoris; I10 Essential (primary) hypertension; E11.9 Type 2 diabetes mellitus without complications; Z79.84 Long term (current) use of oral hypoglycemic drugs; G62.9 Polyneuropathy, unspecified; Z86.73 Personal history of transient ischemic attack (TIA), and cerebral infarction without residual deficits
CPT/HCPCS: 36415; 70450-TC; 71010-TC; 80053; 81003; 82550; 82553; 84484; 85025; 93005; 93010; 99283-25

== ENCOUNTER 2018-10-11 15:35 | Inpatient (IN) | payer OTHER ==
--- NOTE | 2018-10-11 15:52 | PDOC ---
Rapid Medical Evaluation Time Seen by Provider: 10/11/18 15:39 Medical Evaluation: Allergies Allergy/AdvReac Type Severity Reaction Status Date / Time No Known Allergies Allergy Verified 08/23/17 13:44 10/11/18 15:40 I have performed a brief in-person evaluation of this patient The patient presents with a chief complaint of: h/o CVA, CAD, HTN, c/o 1 month of intermittent chest tightness, palpitations, SOB, loss of balance. hence the ED visit. (+)heavy tongue and slurred speech since 9am, which his son noticed 20 minutes ago. Pertinent physical exam findings: slurred speech with hot potatoe voice I have ordered the following: CBC, CMP, type n screen, PT/PTT, cardiac enzymes, CXR, urine The patient will proceed to the ED for further evaluation Discharge Disposition - Diagnosis Slurred speech - Referrals Referrals: Wilian Zhou MD [Primary Care Provider] - - Patient Instructions - Post Discharge Activity
[2018-10-11 16:20] LABS: VENOUS PC02 38.3 mmHg (38-52); VENOUS PH 7.43 (7.32-7.42); VENOUS PO2 66.8 mmHg (28-48)
[2018-10-11 16:27] LABS: BASO % 0.4 % (0-2.0); EOS % 0.8 % (0-4.5); HEMATOCRIT 45.5 % (35.4-49); HEMOGLOBIN 15.8 GM/dL (11.7-16.9); LYMPH % 14.7 % (8-40); MCH 31.2 pg (25.7-33.7); MCHC 34.8 g/dl (32.0-35.9); MEAN CELL VOLUME 89.7 fl (80-96); MEAN PLT VOLUME 9.9 fl (7.5-11.1); MONO % 6.6 % (3.8-10.2); NEUT % 77.5 % (42.8-82.8); PLATELET COUNT 172 K/MM3 (134-434); RBC 5.08 M/mm3 (4.00-5.60); RDW 15.2 % (11.9-15.9); WHITE BLOOD COUNT 7.8 K/mm3 (4.0-10.0)
[2018-10-11 16:35] LABS: INR 1.03 (0.83-1.09); PROTHROMBIN TIME (PATIENT) 12.1 SEC (9.7-13.0)
[2018-10-11 16:49] LABS: URINE APPEARANCE CLEAR; URINE BILIRUBIN NEGATIVE (<2.0 mg/dL); URINE COLOR LTYELLOW; URINE GLUCOSE (UA) NEGATIVE (NEGATIVE); URINE KETONE NEGATIVE (NEGATIVE); URINE LEUK ESTERASE NEGATIVE (NEGATIVE); URINE NITRITE NEGATIVE (NEGATIVE); URINE PROTEIN NEGATIVE (NEGATIVE); URINE UROBILINOGEN NEGATIVE mg/dL (0.2-1.0)
[2018-10-11 16:51] LABS: ALBUMIN 3.8 g/dl (3.4-5.0); ALK PHOS 59 U/L (45-117); ANION GAP 6 MMOL/L (8-16); BILIRUBIN,TOTAL 1.2 mg/dL (0.2-1); BLOOD UREA NITROGEN 20 mg/dL (7-18); CALCIUM 8.9 mg/dL (8.5-10.1); CHLORIDE 107 mmol/L (98-107); CO2 26 mmol/L (21-32); CREATININE 1.1 mg/dL (0.55-1.3); GLUCOSE,RANDOM 108 mg/dL (74-106); LIPASE 330 U/L (73-393); MAGNESIUM 2.3 mg/dL (1.8-2.4); PHOSPHOROUS 3.9 mg/dL (2.5-4.9); POTASSIUM 4.3 mmol/L (3.5-5.1); SGOT/AST 19 U/L (15-37); SGPT/ALT 26 U/L (13-61); SODIUM 139 mmol/L (136-145); TOT PROT 6.9 g/dl (6.4-8.2)
--- NOTE | 2018-10-11 17:52 | PDOC ---
History of Present Illness <ShekharShayan - Last Filed: 10/11/18 17:55> - General History Source: Patient, Family Exam Limitations: Language Barrier - History of Present Illness Initial Comments: 10/11/18 17:47 88-year-old male with history hypertension, diabetes, TIA/CVA, peripheral neuropathy, dementia presents to the ER with multiple complaints. Patient noted abnormal speech at 7 AM on the day of arrival with right leg weakness and worsening gait. Patient also complains of intermittent palpitations that occur at rest and lasts up to 5 minutes with a last occurring several hours prior to presentation. At no time did patient experienced chest pain as is recorded in the triage note. Patient also complains of intermittent visual changes which are bilateral and resolved spontaneously. Patient's family members report that at the time of evaluation he appears at baseline. REVIEW OF SYSTEMS CONSTITUTIONAL: No fever, no chills, no fatigue EYES: No visual changes ENT: No ear pain, no sore throat CARDIOVASCULAR: No chest pain, + palpitations RESPIRATORY: No cough, no SOB GI: No abdominal pain, no nausea, no vomiting, no constipation, no diarrhea GENITOURINARY: No dysuria, no frequency, no hematuria MUSKULOSKELETAL: No backpain, no joint pain, no myalgias SKIN: No rash NEURO: No headache, slurred speech, right leg paresthesias/weakness EXAMINATION CONSTITUTIONAL: Well-appearing; well-nourished; in no apparent distress HEAD: Normocephalic; atraumatic EYES: PERRL; EOM intact ENMT: + Minimal flattening of the right nasolabial fold; normal oropharynx, uvula is midline, and there is no limbal deviation NECK: Supple; non-tender; no carotid bruits CARD: Normal S1, S2; 2/6 se murmurs, no rubs, or gallops RESP: Normal chest excursion with respiration; breath sounds clear and equal bilaterally; no wheezes, rhonchi, or rales ABD: Soft, non-distended; non-tender; no palpable organomegaly, no palpable hernias EXT: Normal ROM in all four extremities; non-tender to palpation; distal pulses intact SKIN: Warm, dry, no rash NEURO: Cranial nerves II through XII are grossly intact with previously noted right facial asymmetry. Motor is 5 of 54; Babinski is negative bilaterally; right pronation drift is noted. <Raymundo Ding - Last Filed: 10/11/18 20:31> - General Chief Complaint: Palpitations Stated Complaint: Palpitations/WEAKNESS Time Seen by Provider: 10/11/18 15:39 Past History <Shayan Corrigan - Last Filed: 10/11/18 17:55> - Past Medical History Anemia: No Asthma: No Cardiac Disorders: Yes (CAD) CVA: Yes (06/2012) COPD: No CHF: No Dementia: No Diabetes: Yes (IDDM - NO MED FOR 3 YRS) GI Disorders: Yes (GERD;DIVERTICULITIS; HEMORROIDS;GASTRITIS) Disorders: Yes (H/O PROSTATE INFLAMMATION) HTN: Yes Hypercholesterolemia: Yes Liver Disease: No Seizures: No Thyroid Disease: No - Surgical History Abdominal Surgery: Yes (UMBILICAL HERNIA) Appendectomy: No Cardiac Surgery: No Cholecystectomy: Yes GI Surgery: Yes (Haital hernia 2004) Lung Surgery: No Neurologic Surgery: No Orthopedic Surgery: No - Immunization History Immunization Up to Date: Yes - Suicide/Smoking/Psychosocial Hx Smoking History: Never smoked Have you smoked in the past 12 months: No If you are a former smoker, when did you quit?: 1973 Hx Alcohol Use: No Drug/Substance Use Hx: No Substance Use Type: None <Raymundo Ding - Last Filed: 10/11/18 20:31> - Past Medical History Allergies/Adverse Reactions: Allergies Allergy/AdvReac Type Severity Reaction Status Date / Time No Known Allergies Allergy Verified 10/11/18 15:40 Home Medications: Ambulatory Orders Gabapentin [Neurontin] 300 mg PO BID 11/15/16 Losartan Potassium [Cozaar] 100 mg PO DAILY 11/15/16 Rosuvastatin Calcium [Crestor] 40 mg PO DAILY 11/15/16 Tamsulosin HCl [Flomax -] 1 each PO BID 11/15/16 Amlodipine Besylate 10 mg PO DAILY 08/23/17 Meclizine HCl [Antivert -] 25 mg PO QID #28 tablet 08/23/17 Cyanocobalamin [Vitamin B12 -] 1,000 mcg PO DAILY 06/14/18 Pantoprazole Sodium 40 mg PO DAILY 06/14/18 Pregabalin [Lyrica] 100 mg PO DAILY 06/14/18 Pyridoxine HCl (B-6) [Vitamin B6 -] 100 mg PO DAILY 06/14/18 Solifenacin Succinate [Vesicare -] 10 mg PO DAILY 06/14/18 *Physical Exam - Vital Signs Last Vital Signs Temp Pulse Resp BP Pulse Ox 97.8 F 84 16 183/106 H 98 10/11/18 15:41 10/11/18 15:41 10/11/18 15:41 10/11/18 15:41 10/11/18 15:41 <Shayan Corrigan - Last Filed: 10/11/18 17:55> - Vital Signs Last Vital Signs Temp Pulse Resp BP Pulse Ox 97.8 F 84 16 183/106 H 98 10/11/18 15:41 10/11/18 15:41 10/11/18 15:41 10/11/18 15:41 10/11/18 15:41 <Raymundo Ding - Last Filed: 10/11/18 20:31> Moderate Sedation - Procedure Monitoring Vital Signs: Procedure Monitoring Vital Signs Temperature 97.8 F 10/11/18 15:41 Pulse Rate 84 10/11/18 15:41 Respiratory Rate 16 10/11/18 15:41 Blood Pressure 183/106 H 10/11/18 15:41 O2 Sat by Pulse Oximetry (%) 98 10/11/18 15:41 <Shayan Corrigan - Last Filed: 10/11/18 17:55> - Procedure Monitoring Vital Signs: Procedure Monitoring Vital Signs Temperature 97.8 F 10/11/18 15:41 Pulse Rate 84 10/11/18 15:41 Respiratory Rate 16 10/11/18 15:41 Blood Pressure 183/106 H 10/11/18 15:41 O2 Sat by Pulse Oximetry (%) 98 10/11/18 15:41 <Raymundo Ding - Last Filed: 10/11/18 20:31> Heart Score/ECG Review #1 10/11/18 17:52 Sinus rhythm with 1st degree AV block Incomplete right bundle branch block Vent rate [address] interval 266 ms QRS duration 96 ms QT/QTc 370/413 ms P-R-T axes 45 2 39 Unchanged from previous EKG. Reviewed by Dr. Ding. <Shayan Corrigan - Last Filed: 10/11/18 17:55> ED Treatment Course - LABORATORY CBC & Chemistry Diagram: 10/11/18 16:00 10/11/18 16:00 - ADDITIONAL ORDERS Additional order review: Laboratory Results 10/11/18 10/11/18 10/11/18 16:16 16:00 16:00 PT with INR 12.10 INR 1.03 VBG pH POC VBG pCO2 POC VBG pO2 Mixed VBG HCO3 Sodium 139 Potassium 4.3 Chloride 107 Carbon Dioxide 26 Anion Gap 6 L BUN 20 H Creatinine 1.1 Creat Clearance w eGFR > 60 Random Glucose 108 H Calcium 8.9 Phosphorus 3.9 Magnesium 2.3 Total Bilirubin 1.2 H AST 19 ALT 26 Alkaline Phosphatase 59 Creatine Kinase 87 Troponin I < 0.02 Total Protein 6.9 Albumin 3.8 Lipase 330 Urine Color Ltyellow Urine Appearance Clear Urine pH 6.0 Ur Specific [place] 1.013 Urine Protein Negative Urine Glucose (UA) Negative Urine Ketones Negative Urine Blood Negative Urine Nitrite Negative Urine Bilirubin Negative Urine Urobilinogen Negative Ur Leukocyte Esterase Negative 10/11/18 16:00 PT with INR INR VBG pH 7.43 H POC VBG pCO2 38.3 POC VBG pO2 66.8 H Mixed VBG HCO3 24.9 Sodium Potassium Chloride Carbon Dioxide Anion Gap BUN Creatinine Creat Clearance w eGFR Random Glucose Calcium Phosphorus Magnesium Total Bilirubin AST ALT Alkaline Phosphatase Creatine Kinase Troponin I Total Protein Albumin Lipase Urine Color Urine Appearance Urine pH Ur Specific [place] Urine Protein Urine Glucose (UA) Urine Ketones Urine Blood Urine Nitrite Urine Bilirubin Urine Urobilinogen Ur Leukocyte Esterase 10/11/18 16:00 RBC 5.08 MCV 89.7 MCHC 34.8 RDW 15.2 MPV 9.9 Neutrophils % 77.5 D Lymphocytes % 14.7 D Monocytes % 6.6 Eosinophils % 0.8 Basophils % 0.4 <Shayan Corrigan - Last Filed: 10/11/18 17:55> - LABORATORY CBC & Chemistry Diagram: 10/11/18 16:00 10/11/18 16:00 - ADDITIONAL ORDERS Additional order review: Laboratory Results 10/11/18 10/11/18 10/11/18 16:16 16:00 16:00 PT with INR 12.10 INR 1.03 VBG pH POC VBG pCO2 POC VBG pO2 Mixed VBG HCO3 Sodium 139 Potassium 4.3 Chloride 107 Carbon Dioxide 26 Anion Gap 6 L BUN 20 H Creatinine 1.1 Creat Clearance w eGFR > 60 Random Glucose 108 H Calcium 8.9 Phosphorus 3.9 Magnesium 2.3 Total Bilirubin 1.2 H AST 19 ALT 26 Alkaline Phosphatase 59 Creatine Kinase 87 Troponin I < 0.02 Total Protein 6.9 Albumin 3.8 Lipase 330 Urine Color Ltyellow Urine Appearance Clear Urine pH 6.0 Ur Specific [place] 1.013 Urine Protein Negative Urine Glucose (UA) Negative Urine Ketones Negative Urine Blood Negative Urine Nitrite Negative Urine Bilirubin Negative Urine Urobilinogen Negative Ur Leukocyte Esterase Negative 10/11/18 16:00 PT with INR INR VBG pH 7.43 H POC VBG pCO2 38.3 POC VBG pO2 66.8 H Mixed VBG HCO3 24.9 Sodium Potassium Chloride Carbon Dioxide Anion Gap BUN Creatinine Creat Clearance w eGFR Random Glucose Calcium Phosphorus Magnesium Total Bilirubin AST ALT Alkaline Phosphatase Creatine Kinase Troponin I Total Protein Albumin Lipase Urine Color Urine Appearance Urine pH Ur Specific [place] Urine Protein Urine Glucose (UA) Urine Ketones Urine Blood Urine Nitrite Urine Bilirubin Urine Urobilinogen Ur Leukocyte Esterase 10/11/18 16:00 RBC 5.08 MCV 89.7 MCHC 34.8 RDW 15.2 MPV 9.9 Neutrophils % 77.5 D Lymphocytes % 14.7 D Monocytes % 6.6 Eosinophils % 0.8 Basophils % 0.4 - RADIOLOGY Radiology Studies Ordered: Category Date Time Status HEAD CT WITHOUT CONTRAST [CT] Stat CT Scan 10/11/18 17:02 Taken CAROTID COLOR FLOW DOPP US [US] Stat Ultrasound 10/11/18 17:20 Ordered <Raymundo Ding - Last Filed: 10/11/18 20:31> Medical Decision Making - Medical Decision Making 10/11/18 17:50 88-year-old male with multiple comorbidities presents with dysarthria, flattening of the right nasolabial fold, right leg weakness and right upper extremity pronation drift. I suspect CVA. Patient is outside of TPA window given presentation greater than 3 hours from the onset of symptoms, as well as a thrombectomy window given presentation greater than 6 hours from the onset of symptoms. Will obtain CT of head. We'll also obtain carotid Doppler ultrasound. If no intracranial hemorrhage is noted, we'll administer aspirin, we'll consult neurology, and will admit to stroke/telemetry. 10/11/18 20:31 Patient did not take his antihypertensive medications and will be given Norvasc and losartan. <Raymundo Ding - Last Filed: 10/11/18 20:31> *DC/Admit/Observation/Transfer - Attestations Scribe Attestion: 10/11/18 17:56 Documentation prepared by Shayan Corrigan, acting as medical insurance biller for Raymundo Ding MD. <Shayan Corrigan - Last Filed: 10/11/18 17:55> - Discharge Dispostion Decision to Admit order: Yes <Raymundo Ding - Last Filed: 10/11/18 20:31> Diagnosis at time of Disposition: Slurred speech, Palpitations Cerebrovascular accident (CVA) Qualifiers: CVA mechanism: unspecified Qualified Code(s): I63.9 - Cerebral infarction, unspecified - Discharge Dispostion Condition at time of disposition: Fair - Referrals Referrals: Wilian Zhou MD [Primary Care Provider] - - Patient Instructions - Post Discharge Activity
[2018-10-11 18:55] LABS: CHOLESTEROL 174 mg/dL (50-200); HDL CHOLESTEROL 47 mg/dL (40-60); TRIGLYCERIDES 123 mg/dL (0-150)
[2018-10-11] MEDS ORDERED: ASPIRIN 325 MG ENTERIC COATED TABLET (FP) PO ONE (19:09)
[2018-10-11] MEDS ORDERED: ASPIRIN 325 MG ENTERIC COATED TABLET (FP) ONE (19:53)
[2018-10-11] MEDS ORDERED: amLODIPine BESYLATE 10 MG TABLET (FP) PO ONE (20:02)
[2018-10-11] MEDS ORDERED: LOSARTAN POTASSIUM 50 MG TABLET (FP) PO ONE (20:02)
[2018-10-11] MEDS ORDERED: amLODIPine BESYLATE 5 MG TABLET (FP) ONE (20:07)
--- NOTE | 2018-10-11 21:41 | HP ---
CHIEF COMPLAINT: speech abnormality, RLE weakness, gait abnormality PCP: Abelardo HISTORY OF PRESENT ILLNESS: Patient is an 88 y/o M w/ PMHx CVA x 2 (2010, 2014), TIA, HTN, HLD, DM (diet- controlled), peripheral neuropathy, BPH, GI bleed 2/2 Aggrenox therapy, p/w new onset dysarthria, dysphagia, RLE weakness, impaired gait 2/2 RLE weakness since 7am this morning. Presented outside TPA window. Additionally complains of intermittent palpitations lasting up to 5 minutes, as well as intermittent episodes of "twitching" of the left eyelid one week ago and now resolved. No CP , no SOB, no f/c, no n/v/c/d. Received amlodipine and ASA 325 in ED. BP 183/107 on presentation, otherwise VS wnl. CT head w/o contrast shows no interval changes, re-identifies prior known infarcts and stable sella turcica mass soft tissue vs. vascular proliferation. Carotid doppler shows plaque at the bifurcation, no significant stenosis. EKG shows no interval change since July 2017. LDL 113 on Crestor, T bilirubin elevation consistent w/ prior hospitalization. ER course was notable for: (1) CT head and carotid dopplers w/o acute pathology (2) LDL 113 (3) Recent Travel: PAST MEDICAL HISTORY: As per HPI PAST SURGICAL HISTORY: As per HPI Social History: Smoking: Alcohol: Drugs: Family History: Allergies No Known Allergies Allergy (Verified 10/11/18 15:40) HOME MEDICATIONS: Home Medications Medication Instructions Recorded Gabapentin [Neurontin] 300 mg PO BID 11/15/16 Losartan Potassium [Cozaar] 100 mg PO DAILY 11/15/16 Rosuvastatin Calcium [Crestor] 40 mg PO DAILY 11/15/16 Tamsulosin HCl [Flomax -] 1 each PO BID 11/15/16 Amlodipine Besylate 10 mg PO DAILY 08/23/17 Meclizine HCl [Antivert -] 25 mg PO QID #28 tablet 08/23/17 Cyanocobalamin [Vitamin B12 -] 1,000 mcg PO DAILY 06/14/18 Pantoprazole Sodium 40 mg PO DAILY 06/14/18 Pregabalin [Lyrica] 100 mg PO DAILY 06/14/18 Pyridoxine HCl (B-6) [Vitamin B6 -] 100 mg PO DAILY 06/14/18 Solifenacin Succinate [Vesicare -] 10 mg PO DAILY 06/14/18 REVIEW OF SYSTEMS As per HPI PHYSICAL EXAMINATION Vital Signs - 24 hr 10/11/18 10/11/18 15:41 19:59 Temperature 97.8 F Pulse Rate 84 Respiratory 16 Rate Blood Pressure 183/106 H Blood Pressure 183/107 H [Left Arm] O2 Sat by Pulse 98 Oximetry (%) GENERAL: A&Ox3 HEAD: NC/AT EYES: PERRLA, EOMI, mild right-sided ptosis EARS, NOSE, THROAT: Moist mucous membranes. NECK: Normal range of motion, supple without lymphadenopathy, JVD, or masses. LUNGS: CTA b/l HEART: Regular rate and rhythm, normal S1 and S2 without murmur, rub or gallop. ABDOMEN: +bs, soft, NT, ND UPPER EXTREMITIES: 2+ pulses, warm, well-perfused. No cyanosis. No clubbing. No peripheral edema. LOWER EXTREMITIES: 2+ pulses, warm, well-perfused. No calf tenderness. No peripheral edema. NEUROLOGICAL: -CN: mild right sided nasolabial flattening and ptosis, could not assess dysarthria (exclusive [place] speaker), uvula midline, symmetric palatal rise, otherwise no deficits appreciated -motor: 5/5 strength in UE b/l and LLE, 4-4+/5 in RLE proximally and distally , mild right pronator drift, no spasticity -sensory: reduced sensation in distal RLE known from chronic neuropathic symptoms, +Romberg sign -reflexes: 1+ DTRs throughout, equivocal plantar response on right (withdraw vs. upgoing) -cerebellar: FtN intact b/l -EPS: no signs -NIHSS: 3 PSYCHIATRIC: Cooperative. Good eye contact. Appropriate mood and affect. SKIN: Warm, dry, normal turgor, no rashes or lesions noted, normal capillary refill. Laboratory Results - last 24 hr 10/11/18 10/11/18 10/11/18 16:00 16:00 16:00 WBC 7.8 RBC 5.08 Hgb 15.8 Hct 45.5 MCV 89.7 MCH 31.2 D MCHC 34.8 RDW 15.2 Plt Count 172 D MPV 9.9 Absolute Neuts (auto) 6.1 Neutrophils % 77.5 D Lymphocytes % 14.7 D Monocytes % 6.6 Eosinophils % 0.8 Basophils % 0.4 Nucleated RBC % 0 PT with INR INR VBG pH 7.43 H POC VBG pCO2 38.3 POC VBG pO2 66.8 H Mixed VBG HCO3 24.9 Sodium Potassium Chloride Carbon Dioxide Anion Gap BUN Creatinine Creat Clearance w eGFR Random Glucose Calcium Phosphorus Magnesium Total Bilirubin AST ALT Alkaline Phosphatase Creatine Kinase Troponin I Total Protein Albumin Triglycerides Cholesterol Total LDL Cholesterol HDL Cholesterol Lipase Urine Color Urine Appearance Urine pH Ur Specific [place] Urine Protein Urine Glucose (UA) Urine Ketones Urine Blood Urine Nitrite Urine Bilirubin Urine Urobilinogen Ur Leukocyte Esterase Blood Type A POSITIVE Antibody Screen Negative 10/11/18 10/11/18 10/11/18 16:00 16:00 16:16 WBC RBC Hgb Hct MCV MCH MCHC RDW Plt Count MPV Absolute Neuts (auto) Neutrophils % Lymphocytes % Monocytes % Eosinophils % Basophils % Nucleated RBC % PT with INR 12.10 INR 1.03 VBG pH POC VBG pCO2 POC VBG pO2 Mixed VBG HCO3 Sodium 139 Potassium 4.3 Chloride 107 Carbon Dioxide 26 Anion Gap 6 L BUN 20 H Creatinine 1.1 Creat Clearance w eGFR > 60 Random Glucose 108 H Calcium 8.9 Phosphorus 3.9 Magnesium 2.3 Total Bilirubin 1.2 H AST 19 ALT 26 Alkaline Phosphatase 59 Creatine Kinase 87 Troponin I < 0.02 Total Protein 6.9 Albumin 3.8 Triglycerides 123 Cholesterol 174 Total LDL Cholesterol 113 H HDL Cholesterol 47 Lipase 330 Urine Color Ltyellow Urine Appearance Clear Urine pH 6.0 Ur Specific [place] 1.013 Urine Protein Negative Urine Glucose (UA) Negative Urine Ketones Negative Urine Blood Negative Urine Nitrite Negative Urine Bilirubin Negative Urine Urobilinogen Negative Ur Leukocyte Esterase Negative Blood Type Antibody Screen ASSESSMENT/PLAN: 88 y/o M w/ PMHx CVA x 2 (2010, 2014), TIA, HTN, HLD, DM (diet-controlled), peripheral neuropathy, BPH, GI bleed 2/2 Aggrenox therapy, p/w new onset dysarthria, dysphagia, RLE weakness, impaired gait 2/2 RLE weakness since 7am this morning #CVA vs. TIA -neurologic findings as per PE, subtle positive findings difficult to discern as new onset vs. residual deficits -brain MRI -neuro checks q4h -neurology consulted: case presented to Dr. James -permissive HTN x 24 hours -NPO -S/S eval -dysphagia precautions -restart ASA, statin -elevate HOB 15 degrees -fall precautions -PT -TSH, prolactin pending #FEN -no IVF -monitor lytes -NPO pending S/S eval #PPx -DVT: SCDs -GI: not indicated #code -full #dispo -tele obs Visit type - Emergency Visit Emergency Visit: Yes ED Registration Date: 10/11/18 Care time: The patient presented to the Emergency Department on the above date and was hospitalized for further evaluation of their emergent condition. - New Patient This patient is new to me today: Yes Date on this admission: 10/12/18 - Critical Care Critical Care patient: No
[2018-10-11] MEDS ORDERED: ATORVASTATIN CA 80 MG TABLET (FP) ONE ×2 (22:29)
[2018-10-11] MEDS: ATORVASTATIN CA 80 MG TABLET (FP) PO SCH (22:37)
--- NOTE | 2018-10-11 22:45 | PN ---
Teaching Attending Note Name of Resident: Zane Parra ATTENDING PHYSICIAN STATEMENT I saw and evaluated the patient. I reviewed the resident's note and discussed the case with the resident. I agree with the resident's findings and plan as documented. SUBJECTIVE: Seen and examined; please see resident note for additional historical information. Briefly, this is an 88 y/o HM with a PMH as documented presenting to the ER with neurologic sx concerning for TIA. The symptoms involved his RLE being weak with perception of heaviness alongside dysarthria that was noted early this AM (dysarthria noted by son on telephone conversation) . He came to the ER after being prompted by family; sx have resolved prior to our encounter but the exact timing is unknown. He would be well outside the tPA window anyway based on his time of presentation. He is doing well. Daughter is present and states that sx have returned to baseline for the most part. I should mention he did have a bit of dysphagia this morning but has since eaten a granola bar this PM. 10 sys ROS done and negative aside from HPI PMH and PSH asked and noncontributory FH asked and noncontributory Socially denies drug or alcohol abuse Medication list reviewed; reconciliation pending OBJECTIVE: VS, labs, imaging reviewed Awake and keenly responsive, RUE/LUE strength 5/5, RLE strength 4/5 LLE 5/5 but no gait disturbance, sensory intact, best gaze intact, no issues with language, facial droop present but old would score 1 still, no cerebellar issues, no issues with neglect RRR s1/2 no mgr Lungs CTAB w/ sym exp NT ND +BS Labs reviewed; CBC and chemistry unremarkable; bili slightly elevated at 1.2 but has been slightly high in the past as well. UA unremarkable. LDL is 113 with tchol 174. PRL is pending. Negative troponin. CT brain shows no acute pathology; visualized a L-focal sellar/cavernous lesion that is a soft tissue abnormality and not an aneurysm. Ddx includes menengioma vs. adenoma and periodic imaging surveillance recommended. Carotid duplex: Unremarkable for severe disease; see full report for further details MRI pending Echo pending EKG reviewed; tele reviewed ASSESSMENT AND PLAN: Mr. Shah is a 88 y/o male presenting with sx suspicious for TIA; neurology has been consulted and he will be brought to the floor on medicine service. 1) TIA -Resolved sx at/near his baseline within 24 hours; was outside the window. -Admit to telemetry. Neuro checks, seizure precautions. -Consult his neurologist -Continue with high intensity statin, ASA. He does have elevated LDL and Tchol despite being on high dose statin so should see PCP for additional lipid control , possible nutritional referral. Doesn't need to be done stat but would be worth considering. -Followup MRI, echo. CT and Carotid doppler reviewed. Hold BP meds to allow for permissive HTN (were given in ER earlier) -Monitor neuro exam, NIHSS. Consulting PT. 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 Will review MRI and check a prolactin level and followup neurology recs 3) Dysphagia -Was able to eat at the hospital; he developed difficulty swallowing this morning. Consulting Cameron Leon for swallow evaluation. 4) HTN -Resume meds when clinically appropriate 5) HLD -Discussed with #1 6) DM -SSI if needed 7) BPH -Monitor for s/s retention 8) H/O GIB -Was due to aggrenox; no acute issues. Monitor HH 9) Prior CVA/TIA hx 10) Diabetic Neuropathy -Can use GABAergics and followup with PCP FENA -LR@75 while NPO -PRN replete -NPO until cleared by swallow -As tolerated Full Code
[2018-10-12] MEDS ORDERED: ACETAMINOPHEN 1000 MG/100 ML VIAL (NON FORMULARY) IVPB ONE (00:51)
[2018-10-12 07:18] LABS: BASO % 0.3 % (0-2.0); EOS % 1.1 % (0-4.5); HEMATOCRIT 48.3 % (35.4-49); HEMOGLOBIN 15.4 GM/dL (11.7-16.9); LYMPH % 19.9 % (8-40); MCH 29.1 pg (25.7-33.7); MEAN CELL VOLUME 91.2 fl (80-96); MEAN PLT VOLUME 9.6 fl (7.5-11.1); MONO % 6.3 % (3.8-10.2); NEUT % 72.4 % (42.8-82.8); PLATELET COUNT 159 K/MM3 (134-434); RDW 15.1 % (11.9-15.9); WHITE BLOOD COUNT 7.2 K/mm3 (4.0-10.0)
[2018-10-12 08:20] LABS: ANION GAP 7 MMOL/L (8-16); BLOOD UREA NITROGEN 20 mg/dL (7-18); CALCIUM 8.8 mg/dL (8.5-10.1); CHLORIDE 106 mmol/L (98-107); CO2 27 mmol/L (21-32); CREATININE 1.2 mg/dL (0.55-1.3); GLUCOSE,RANDOM 105 mg/dL (74-106); MAGNESIUM 2.3 mg/dL (1.8-2.4); POTASSIUM 4.5 mmol/L (3.5-5.1); SODIUM 140 mmol/L (136-145)
[2018-10-12] MEDS: ASPIRIN 325 MG ENTERIC COATED TABLET (FP) PO SCH (09:35)
[2018-10-12] MEDS ORDERED: amLODIPine BESYLATE 10 MG TABLET (FP) PO SCH (10:00)
[2018-10-12] MEDS ORDERED: ASPIRIN COATED 81 MG TABLET.EC PO SCH (10:00)
--- NOTE | 2018-10-12 10:21 | EKG ---
Test Reason : Blood Pressure : / mmHG Vent. Rate : 075 BPM Atrial Rate : 075 BPM P-R Int : 266 ms QRS Dur : 096 ms QT Int : 370 ms P-R-T Axes : 045 002 039 degrees QTc Int : 413 ms SINUS RHYTHM WITH 1ST DEGREE A-V BLOCK INCOMPLETE RIGHT BUNDLE BRANCH BLOCK POSSIBLE ANTERIOR INFARCT , AGE UNDETERMINED ABNORMAL ECG WHEN COMPARED WITH ECG OF 23-AUG-2017 13:42, CRITERIA FOR INFERIOR INFARCT ARE NO LONGER PRESENT Confirmed by BRETT MCCORMICK MD ([id number]) on 10/12/2018 10:21:44 AM Referred By: Confirmed By:BRETT MCCORMICK MD
--- NOTE | 2018-10-12 10:28 | ECHO ---
Name: RICKSUE MUSA, Exam:Adult Echocardiogram Study Date: 10/12/2018 09:02 AM Age: 88 yrs Reason For Study: EF Height: 66 in Weight: 179 lb BSA: 1.9 m2 MMode/2D Measurements & Calculations IVSd: 1.8 cm Ao root diam: 3.3 cm LVIDd: 3.4 cm LA dimension: 2.5 cm LVIDs: 2.5 cm LVPWd: 1.0 cm EDV(Teich): 47.7 ml LVOT diam: 2.0 cm ESV(Teich): 22.1 ml Doppler Measurements & Calculations MV E max sergio: 96.5 cm/sec Ao V2 max: 230.0 cm/sec MV dec time: 0.15 sec Ao max P.2 mmHg Ao V2 mean: 173.2 cm/sec Ao mean P.1 mmHg Ao V2 VTI: 49.7 cm DEBBIE(I,D): 1.1 cm2 AI P1/2t: 655.4 msec DEBBIE(V,D): 1.1 cm2 AI max sergio: 392.1 cm/sec LV V1 max P.7 mmHg AI max P.5 mmHg LV V1 mean P.7 mmHg AI dec slope: 175.2 cm/sec2 LV V1 max: 82.5 cm/sec LV V1 mean: 62.8 cm/sec LV V1 VTI: 16.9 cm SV(LVOT): 53.6 ml TR max sergio: 184.6 cm/sec TR max P.6 mmHg Med Peak E' Sergio: 5.1 cm/sec PI Vmax: 103.2 cm/sec Med E/e': 18.9 Lat Peak E' Sergio: 5.1 cm/sec Lat E/e': 18.9 Left Ventricle There is mild concentric left ventricular hypertrophy. Left ventricular systolic function is normal. Right Ventricle The right ventricle is normal in size and function. Atria Normal left and right atrial size and function. Mitral Valve The mitral valve is grossly normal. There is no mitral valve stenosis. Tricuspid Valve The tricuspid valve is normal in structure and function. There is mild tricuspid regurgitation. Aortic Valve There is moderate aortic sclerosis.;. No hemodynamically significant valvular aortic stenosis. Mild a ortic regurgitation. Pulmonic Valve The pulmonic valve is not well seen, but is grossly normal. There is no pulmonic valvular stenosis. Great Vessels The aortic root is normal size. Mildly dilated ascending aorta. Pericardium/Pleura There is no pericardial effusion. Interpretation Summary Left ventricular systolic function is normal. The right ventricle is normal in size and function. There is mild tricuspid regurgitation. There is moderate aortic sclerosis.; Mild aortic regurgitation. Mildly dilated ascending aorta. There is no pericardial effusion. MD Carlos Nunez 10/12/2018 10:27 AM
--- NOTE | 2018-10-12 10:38 | CONSULT ---
Admitting History and Physical - Primary Care Physician PCP: Steve Luciano - Admission History of Present Illness: Patient is an 88 y/o M w/ PMHx CVA x 2 (2010, 2014), TIA, HTN, HLD, DM (diet- controlled), peripheral neuropathy, BPH, GI bleed 2/2 Aggrenox therapy, p/w new onset dysarthria, dysphagia, RLE weakness, impaired gait 2/[address] head and carotid dopplers w/o acute pathology MRI acute left MCA stroke Pt has reported difficulty with food "going down" to staff. Pt's son said he c/ o difficulty with heaviness but tolerated sandwich and drinks last night in ER without difficulty. Today, pt denied any symptoms of dysphagia, except for "pressure sometimes in his chest after eating, needing to burp." Pt does report symptoms of GERD,and is followed by Dr. Mayo [facility]. History Source: Patient, Family Member Limitations to Obtaining History: No Limitations - Past Medical History [employer]: Yes: Peripheral Neuropathy Cardiovascular: Yes: CAD, HTN Renal/: Yes: BPH Heme/Onc: Yes: Other (macroadenoma ) Endocrine: Yes: Diabetes Mellitus - Smoking History Smoking history: Former smoker Have you smoked in the past 12 months: No Aproximately how many cigarettes per day: 40 If you are a former smoker, when did you quit?: 1972 - Alcohol/Substance Use Hx Alcohol Use: No History - Admission Reason For Visit: CARDIOVASCULAR ACCIDENT - Diagnostics X-ray: Report Reviewed CT Scan: Report Reviewed MRI: Report Reviewed - General Mental Status: Alert and Oriented, Awake and Alert, Able to Follow Commands Attention: Intact Ability to Follow Directions: Good Head/Neck Control: WFL - Hearing Hearing: Normal Speech Evaluation - Communication Primary Language: KOREAN Communication: Yes: Within Normal Limits, Language Barrier Oral Expression Ability: Yes: No Impairment - Speech Production Able to Make Needs Known: Yes: WNL Intelligibility: Yes: WNL - Speech Characteristics Voice Loudness: Normal Voice Pitch: Yes: Normal Voice Phonatory-based Quality: Yes: Normal Speech Pattern: Normal Speech Clarity: < 100% Nasal Resonance: Normal Articulation: Yes: Precise - Language/Auditory Comprehension Follows: Yes: 2 Stage Simple Commands Observation: Able to respond to yes/no queries: Yes, Yes/No Confusion: No, Comprehends Conversational Speech: Yes - Language/Verbal Expression Able to Respond to Simple Queries: Yes: WNL Able to Communicate Wants and Needs: Yes: WNL Functional Communication Status: Yes: WNL - Memory/Perception shelter Memory: Yes: WNL Short Term Memory: Yes: WNL - Swallow Evaluation/Bedside Assessment Current Nutritional Intake: NPO Oral Secretions: Yes: WFL Dentition: Yes: Adequate, Missing Teeth Facial Symmetry at Rest: Symmetrical Facial Symmetry on Retraction: Symmetrical Sensation: Normal Against Resistance Opening: Normal Against Resistance Closing: Normal Pucker Lips: Normal Smile: Normal Lingual Movement: Normal, Symmetric Lingual Speed of Movement: Normal Lingual Movement Strgth Against Opposition: Normal Lingual Movement Characteristics: Normal Velopharyngeal Movement: Normal Laryngeal Elevation: WFL Laryngeal Movement: Able to Palpate Rate of Intake: WFL Bolus Size: WFL Labial Seal: WFL Chewing: WFL Oral Prep Time: WFL A-P Transit: WFL Pocketing: None Timing of Swallow: WFL Coughing/Throat Clear: No Change in Voice: No Recommendations - Speech Evaluation, Impression/Plan Impression: Acute Left MCA infact. Kinyarwanda speaKing. No gross Aphasia, Dysarthria, Apraxia, Dysphagia, Cognitive deficits. h/o GERD with belching with meals reported - Dysphagia Impressions/Plan Swallowing Skills: [facility] Dysphagia Impressions: No Impairment *Silent aspiration: cannot be R/O at bedside Recommendations: Modified Barium Swallow (If cough, congestion, fever), Other ( Monitor PO tolerance) - Recommendations Diet Consistency: Regular Medication Administration: Whole with water Liquids: Thin Liquids
--- NOTE | 2018-10-12 10:38 | PN ---
Physical Exam: SUBJECTIVE: Patient seen and examined. Portuguese speaking only with sons at bedside to interpret. 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 Pt. endorses headache overnight was given Tylenol to good effect. Pt. states that since yesterday he has been urinating frequently so he took one of his oxybutinin pills from an old pill bottle filled in 2016. Pt. endorses occasional dizzyness and right leg numbness. Pt.'s son recalls that the Pt. 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 Pt. states that he feels fine and denies CP, SOB, or changes in bowel habits. OBJECTIVE: Vital Signs Period Temp Pulse Resp BP Sys/Yates Pulse Ox Last 24 Hr 97.8 F-98.8 F 72-93 16-20 135-183/78-107 98-99 GENERAL: The patient is awake, alert, and fully oriented, in no acute distress. HEAD: Normal with no signs of trauma. EYES: PERRL, extraocular movements intact, sclera anicteric, conjunctiva clear. left ptosis. ENT: Ears normal, nares patent, oropharynx clear without exudates, no tongue deviation, uvula not visualized, moist mucous membranes. NECK: Trachea midline, full range of motion, supple. LUNGS: Decreased BS in LLL, clear to auscultation bilaterally, no wheezes, no crackles, no accessory muscle use, no CVA tenderness. HEART: Regular rate and rhythm, S1, S2 without murmur ABDOMEN: Soft, nontender, nondistended, normoactive bowel sounds, no guarding, no rebound EXTREMITIES: 2+ dorsal pedal pulses, subtle right sided weakness in RUE and RLE , warm, well-perfused, no edema. NEUROLOGICAL: Cranial nerves II through XII grossly intact. Normal speech, slightly unsteady gait, Romberg +. PSYCH: Normal mood, normal affect. SKIN: Warm, dry, normal turgor Laboratory Results - last 24 hr 10/11/18 10/11/18 10/11/18 16:00 16:00 16:00 WBC 7.8 RBC 5.08 Hgb 15.8 Hct 45.5 MCV 89.7 MCH 31.2 D MCHC 34.8 RDW 15.2 Plt Count 172 D MPV 9.9 Absolute Neuts (auto) 6.1 Neutrophils % 77.5 D Lymphocytes % 14.7 D Monocytes % 6.6 Eosinophils % 0.8 Basophils % 0.4 Nucleated RBC % 0 PT with INR INR VBG pH 7.43 H POC VBG pCO2 38.3 POC VBG pO2 66.8 H Mixed VBG HCO3 24.9 Sodium Potassium Chloride Carbon Dioxide Anion Gap BUN Creatinine Creat Clearance w eGFR POC Glucometer Random Glucose Calcium Phosphorus Magnesium Total Bilirubin AST ALT Alkaline Phosphatase Creatine Kinase Troponin I Total Protein Albumin Triglycerides Cholesterol Total LDL Cholesterol HDL Cholesterol Lipase TSH Urine Color Urine Appearance Urine pH Ur Specific [place] Urine Protein Urine Glucose (UA) Urine Ketones Urine Blood Urine Nitrite Urine Bilirubin Urine Urobilinogen Ur Leukocyte Esterase Blood Type A POSITIVE Antibody Screen Negative 10/11/18 10/11/18 10/11/18 16:00 16:00 16:16 WBC RBC Hgb Hct MCV MCH MCHC RDW Plt Count MPV Absolute Neuts (auto) Neutrophils % Lymphocytes % Monocytes % Eosinophils % Basophils % Nucleated RBC % PT with INR 12.10 INR 1.03 VBG pH POC VBG pCO2 POC VBG pO2 Mixed VBG HCO3 Sodium 139 Potassium 4.3 Chloride 107 Carbon Dioxide 26 Anion Gap 6 L BUN 20 H Creatinine 1.1 Creat Clearance w eGFR > 60 POC Glucometer Random Glucose 108 H Calcium 8.9 Phosphorus 3.9 Magnesium 2.3 Total Bilirubin 1.2 H AST 19 ALT 26 Alkaline Phosphatase 59 Creatine Kinase 87 Troponin I < 0.02 Total Protein 6.9 Albumin 3.8 Triglycerides 123 Cholesterol 174 Total LDL Cholesterol 113 H HDL Cholesterol 47 Lipase 330 TSH Urine Color Ltyellow Urine Appearance Clear Urine pH 6.0 Ur Specific [place] 1.013 Urine Protein Negative Urine Glucose (UA) Negative Urine Ketones Negative Urine Blood Negative Urine Nitrite Negative Urine Bilirubin Negative Urine Urobilinogen Negative Ur Leukocyte Esterase Negative Blood Type Antibody Screen 10/11/18 10/12/18 10/12/18 21:45 05:37 06:00 WBC 7.2 RBC 5.30 Hgb 15.4 Hct 48.3 MCV 91.2 MCH 29.1 MCHC 32.0 RDW 15.1 Plt Count 159 MPV 9.6 Absolute Neuts (auto) 5.2 Neutrophils % 72.4 Lymphocytes % 19.9 D Monocytes % 6.3 Eosinophils % 1.1 Basophils % 0.3 Nucleated RBC % 0 PT with INR INR VBG pH POC VBG pCO2 POC VBG pO2 Mixed VBG HCO3 Sodium Potassium Chloride Carbon Dioxide Anion Gap BUN Creatinine Creat Clearance w eGFR POC Glucometer 117 Random Glucose Calcium Phosphorus Magnesium Total Bilirubin AST ALT Alkaline Phosphatase Creatine Kinase Troponin I < 0.02 Total Protein Albumin Triglycerides Cholesterol Total LDL Cholesterol HDL Cholesterol Lipase TSH Urine Color Urine Appearance Urine pH Ur Specific [place] Urine Protein Urine Glucose (UA) Urine Ketones Urine Blood Urine Nitrite Urine Bilirubin Urine Urobilinogen Ur Leukocyte Esterase Blood Type Antibody Screen 10/12/18 10/12/18 06:00 06:00 WBC RBC Hgb Hct MCV MCH MCHC RDW Plt Count MPV Absolute Neuts (auto) Neutrophils % Lymphocytes % Monocytes % Eosinophils % Basophils % Nucleated RBC % PT with INR INR VBG pH POC VBG pCO2 POC VBG pO2 Mixed VBG HCO3 Sodium 140 Potassium 4.5 Chloride 106 Carbon Dioxide 27 Anion Gap 7 L BUN 20 H Creatinine 1.2 Creat Clearance w eGFR 57.41 POC Glucometer Random Glucose 105 Calcium 8.8 Phosphorus 4.0 Magnesium 2.3 Total Bilirubin AST ALT Alkaline Phosphatase Creatine Kinase Troponin I < 0.02 Total Protein Albumin Triglycerides Cholesterol Total LDL Cholesterol HDL Cholesterol Lipase TSH 2.15 D Urine Color Urine Appearance Urine pH Ur Specific [place] Urine Protein Urine Glucose (UA) Urine Ketones Urine Blood Urine Nitrite Urine Bilirubin Urine Urobilinogen Ur Leukocyte Esterase Blood Type Antibody Screen Active Medications Home Medications Medication Instructions Recorded Gabapentin [Neurontin] 100 mg PO TID 11/15/16 Rosuvastatin Calcium [Crestor] 40 mg PO HS 11/15/16 Tamsulosin HCl [Flomax -] 0.4 mg PO DAILY 11/15/16 Amlodipine Besylate 10 mg PO DAILY 08/23/17 Pantoprazole Sodium 40 mg PO DAILY 06/14/18 Meclizine HCl [Antivert -] 25 mg PO Q8H PRN 10/12/18 Oxybutynin Chloride [Oxybutynin 5 mg PO DAILY 10/12/18 Chloride ER] l-Mefol/A-Cyst/Meb12/Algal Oil 1 each PO BID 10/12/18 [Cerefolin Nac Caplet] Current Medications Amlodipine Besylate (Norvasc -) 10 mg PO DAILY [facility] Last Admin: 10/12/18 10:19 Dose: 10 mg Aspirin (Ecotrin -) 325 mg PO DAILY [facility] Last Admin: 10/12/18 09:35 Dose: 325 mg Atorvastatin Calcium (Lipitor -) 80 mg PO HS [facility] Last Admin: 10/11/18 22:37 Dose: 80 mg ASSESSMENT/PLAN: Pt. is an 88 y.o. M w/ PMHx CVA x 2 (2010, 2014), TIA, HTN, HLD, DM (diet- controlled), peripheral neuropathy, BPH, and GI bleed 2/2 Aggrenox therapy, presents(4pm 10/11/18) with new onset dysarthria, dysphagia, RLE weakness, impaired gait 2/2 RLE weakness since 7am 10/11/18 #CVA likely stroke -f/u brain MRI -neurovascular checks Q4H -neurology consult (Dr. James) appreciated - reported in 2017 Pt. 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 Dr. James read the MRI as containing a M2 MCA stroke. -c/w ASA, statin -fall precautions -Carotid Doppler negative for acute pathology -Physical Therapy -TSH: 2.15 (wnl) -f/u prolactin pending -Echo: showed no effusion, mild AR, mild descending aortic dilatation, moderate aortic sclerosis but no hemodynamically significant stenosis, mild concentric LVH but normal LV function #HTN -Pt.s BP has been increasing -restarted Norvasc 10mg #HLD -c/w Lipitor -Rpt. lipid panel in 6-8 weeks to ensure LDL is less than 70. If not will need an additional agent to mange hyerlipidemia. #F/E/N -no IVF encourage PO intake -monitor electrolytes and replete as needed -NPO pending speech and swallow assessment, then sodium restricted diet #PPx -DVT: SCDs -GI: not indicated #Code -Full #Dispo -Tele obs Visit type - Emergency Visit Emergency Visit: Yes ED Registration Date: 10/12/18 Care time: The patient presented to the Emergency Department on the above date and was hospitalized for further evaluation of their emergent condition. - New Patient This patient is new to me today: Yes Date on this admission: 10/12/18 - Critical Care Critical Care patient: No - Discharge Referral Referred to [facility] No
--- NOTE | 2018-10-12 12:34 | CON.NEURO ---
Consult Consult Specialty:: [facility] Referred by:: ER - History of Present Illness History of Present Illness: this is a very pleasant 88-year-old man with present medical history significant for: coronary artery disease, history of stroke in the past, peripheral neuropathy, diabetes, coronary artery disease and difficulty with walking presented to the hospital last night with a chief complaint of 7 AM starting onset of difficulty with walking. According to the patient the right leg was not cooperating with feeling of tingling no numbness to pins and needles no symptoms on the left leg no back pain no urinary incontinence. Patient also was noted to have some difficulty expressing himself with slurring of speech. I interviewed the patient on the telemetry. Son was at the bedside. No report of any headache I spoke to the nurse no report of any cardiac arrhythmia. Prior to admission patient had about a 5 minute episode of palpitation. Patient had an echocardiogram results were noted. Patient had a carotid Doppler results were noted. I spoke to the emergency room last night patient used to be on aspirin it was stopped due to history of GI bleeding and hemorrhoids. Patient was started on aspirin last night and statin and was admitted to the floor. Patient just came back from the MRI of the brain which confirmed the presence of left M2 MCA stroke - History Source History Provided By: Patient, Family Member, Medical Record Limitations to Obtaining History: No Limitations - Past Medical History ASSISTANT CURATOR: Yes: Peripheral Neuropathy Cardio/Vascular: Yes: CAD, HTN Renal/: Yes: BPH Endocrine: Yes: Diabetes Mellitus - Alcohol/Substance Use Hx Alcohol Use: No - Smoking History Smoking history: Former smoker Have you smoked in the past 12 months: No Aproximately how many cigarettes per day: 40 If you are a former smoker, when did you quit?: 1972 Home Medications - Allergies Allergies/Adverse Reactions: Allergies Allergy/AdvReac Type Severity Reaction Status Date / Time No Known Allergies Allergy Verified 10/11/18 15:40 - Home Medications Home Medications: Ambulatory Orders Gabapentin [Neurontin] 100 mg PO TID 11/15/16 Rosuvastatin Calcium [Crestor] 40 mg PO HS 11/15/16 Tamsulosin HCl [Flomax -] 0.4 mg PO DAILY 11/15/16 Amlodipine Besylate 10 mg PO DAILY 08/23/17 Pantoprazole Sodium 40 mg PO DAILY 06/14/18 Meclizine HCl [Antivert -] 25 mg PO Q8H PRN 10/12/18 Oxybutynin Chloride [Oxybutynin Chloride ER] 5 mg PO DAILY 10/12/18 l-Mefol/A-Cyst/Meb12/Algal Oil [Cerefolin Nac Caplet] 1 each PO BID 10/12/18 Family Disease History - Family Disease History Family History: Denies (sstroke) Review of Systems - Review of Systems Constitutional: reports: No Symptoms Eyes: reports: No Symptoms Neurological: reports: Headache, Incoordination Physical Exam-Neuro Vital Signs: Vital Signs Temperature 98.8 F 10/12/18 06:00 Pulse Rate 72 10/12/18 06:00 Respiratory Rate 20 10/12/18 06:00 Blood Pressure 135/78 10/12/18 06:00 O2 Sat by Pulse Oximetry (%) 99 10/12/18 06:00 Constitutional: Yes: Well Nourished Neck: Yes: WNL Cardiovascular: Yes: WNL Labs: CBC, BMP 10/12/18 06:00 10/12/18 06:00 INR, PTT INR 1.03 (0.83-1.09) 10/11/18 16:00 - Neuro Exam Level Of Consciousness: Yes: Oriented to Person, Oriented to Place, Oriented to Time Eyes: Yes: PERRLA Speech: WNL Dominant Hand: Right Cranial Nerves II-XII Intact: Yes Gag: Present DTR's: 1+ Left Bicep, 1+ Right Bicep, 1+ Left Brachioradialis, 1+ Right Brachioradialis Response to light touch: Normal Response to pain prick: Normal Response to temperature: Abnormal Response to vibration: Abnormal Motor Strength: 4/5: Left Arm, Right Arm, Left Leg, Right Leg Gait: Normal NIH Stroke Scale - Last Known Well Date/Time & Onset Date Last Known Well: 10/11/18 Time Last Known Well: 07:00 - Initial Evaluation Level of consciousness: Alert Ask patient the month and their age: Answers both correctly Ask patient to open & close eyes; make fist and let go: Obeys both correctly Best gaze (horizontal eye movement): Normal Visual field testing: No visual field loss Facial paresis (Show teeth/raise eyebrows/close eyes tight): Normal symmetrical movement Motor Function: Left Arm: Normal Motor Function: Right Arm: Normal (extends arm 90 (or 45) degrees for 10 seconds without drift Motor Function: Left Leg: Normal (extends leg 30 degrees for 5 seconds without drift) Motor Function: Right Leg: Normal (extends leg 30 degrees for 5 seconds without drift) Limb Ataxia: No ataxia Sensory(Use pinprick test arms,legs,trunk,face/side to side): Normal Best language (Describe picture, name items, read sentences): No Aphasia Dysarthria (read several words): Normal articulation Extinction and Inattention: No abnormality - Total Score NIH Stroke Scale Score: 0 Imaging - Results X-ray: Image Reviewed MRI: Image Reviewed Problem List - Problems (1) Cerebrovascular accident (CVA) Assessment/Plan: acute left MCA stroke Risks of having strokes: age, coronary artery disease, prior CVA, man PLan: 1. neurochecks every 1 hour. 2. Suggested Holter monitor extended to detect any cardiac arrhythmia especially atrial fibrillation. 3. Continue the coated aspirin for now with careful monitoring of the CBC and bleeding. 5. Tight cholesterol control with a target less than 170. 6. Patient can go home with visiting nurse services. 7. Physical therapy at home. 8. Homocysteine level. 9. can start feeding the patient 10. SCD Thank you very much for allowing me to be part of this patient neurological care. Code(s): I63.9 - CEREBRAL INFARCTION, UNSPECIFIED Qualifiers: CVA mechanism: unspecified Qualified Code(s): I63.9 - Cerebral infarction, unspecified
--- NOTE | 2018-10-12 13:18 | PN ---
Teaching Attending Note Name of Resident: Julieta Palmer ATTENDING PHYSICIAN STATEMENT I saw and evaluated the patient. I reviewed the resident's note and discussed the case with the resident. I agree with the resident's findings and plan as documented. SUBJECTIVE: No fever chills. still feels his RLE is heavy . no weakness, no change in vision or speech. per son , he had dysrthria initially. OBJECTIVE: NAD Cv: RRR, no mRG Lungs: CTAB Ext : no edema or erythema. neuro : EOMI, round equal pupils, reactive to light . no facial droop, tongue at mid line, nl facial sensation . strength 5/5 in upper and lower extremities proximally and distally. sensation to light touch NL. nose to finger NL. no pronator drift.. ASSESSMENT AND PLAN: 88 y/o man with h/o stroke x 2, HTN, BPH, DM, GI bleed , sellar mass., who presented with R LE heaviness, and dysrthria and was found to have weakness. 1- RLE weakness, and dysarthria. now with Nl neuro exam. - MRI pending , but per Dr. James note, MCA stroke is found . will wait for final report - tight blood pressure control. NL BP now . no tami for permissive HTn any more ( > 24 hr after sx started ) .received losartan last night in ER, monitor . rsume meds in am if BP is not elevated today - asa . - change to lipitor. might need addition of another agent as out pt . need repeat Lipid panel in 6-8 weeks - echo - tele . out pt prolonged monitor - carotid doppler reviewed. 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 f/u as out pt . prolactin level pending. rest of w/u as out pt 3- Dispo : tele x 24 hours. dc in am
[2018-10-12] MEDS: ATORVASTATIN CA 80 MG TABLET (FP) PO SCH (21:03)
[2018-10-13] MEDS ORDERED: ACETAMINOPHEN 325 MG TABLET (FP) PO PRN (09:06)
[2018-10-13] MEDS: ASPIRIN 325 MG ENTERIC COATED TABLET (FP) PO SCH (09:11)
[2018-10-13 11:08] VITALS: BP 149/78; PULSE 63; TEMP 97.7
[2018-10-13 11:14] LABS: URINE APPEARANCE CLEAR; URINE BILIRUBIN NEGATIVE (<2.0 mg/dL); URINE COLOR YELLOW; URINE GLUCOSE (UA) NEGATIVE (NEGATIVE); URINE KETONE NEGATIVE (NEGATIVE); URINE LEUK ESTERASE NEGATIVE (NEGATIVE); URINE NITRITE NEGATIVE (NEGATIVE); URINE PROTEIN NEGATIVE (NEGATIVE); URINE UROBILINOGEN NEGATIVE mg/dL (0.2-1.0)
--- NOTE | 2018-10-13 11:20 | PN ---
Teaching Attending Note Name of Resident: Jenn Sorto ATTENDING PHYSICIAN STATEMENT I saw and evaluated the patient. I reviewed the resident's note and discussed the case with the resident. I agree with the resident's findings and plan as documented. SUBJECTIVE: No fever or chills. still feels his RLE is heavy. had no visual changes . no dysphagia. reports feeling palpitations vs chest discomfort in L side over an area of 5 Cm above nipple. this started at 7 am . complained of increased frequency of urination sinc ein house , but no dysuria or abd pain. OBJECTIVE: NAD Cv: RRR, no mRG Lungs: CTAB Ext : no edema or erythema. neuro : EOMI, round equal pupils, reactive to light . no facial droop, tongue at mid line, nl facial sensation. strength 5/5 in upper and lower extremities proximally and distally. sensation to light touch NL. reflexes 2+ knee jerk and biceps b/l . MS: TTP over L sided chest in the area described above ASSESSMENT AND PLAN: 88 y/o man with h/o stroke x 2, HTN, BPH, DM, GI bleed , sellar mass., who presented with R LE heaviness, and dysrthria and was found to have weakness. 1- Acute stroke ( L frontal, L occipital, L parietal ) . still no clear reason for recurrent strokes - start lisinopril due to improved out come with ACEI - cont ASa - cont lipitor 40 at dc - f/u with neuro - need prolonged cardiac monitoring as out p t. will refer to card . - tele reviewed: no arrhythmias , even this am. 2- L sided chest discomfort and palpitations: no correlating events on tele . 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 f/u as out pt . prolactin level NL 4- Mild dilation of ascending aorta on Echo: f/u with repeat echo as out pt . 5- increased urinary frequency: likely due to BPH . check UA to r/o UTI dispo : dc home today above was d/w him and his son at bed side . importance of compliance is stressed due to the risk of recurrent stroke with possible bad out come. Need neuro f/u, card f/u and prolonged cardiac monitoring to r/o arrhythmias
[2018-10-13 11:47] VITALS: BMI 27.7
--- NOTE | 2018-10-13 12:10 | DS ---
Physical Exam: SUBJECTIVE: Patient seen and examined; called to evaluate patient due to left sided chest pain. When asked patient about pain, it was sharp under left axilla. No palpations, sweating, jaw pain, arm numbness or tingling. ECG was ordered and cardiac profile was draw, unchanged ecg and negative profile. He was given Tylenol for musculoskeletal pain. Patient also admits to RLE numbness. OBJECTIVE: Vital Signs Period Temp Pulse Resp BP Sys/Yates Pulse Ox Last 24 Hr 97.4 F-98.0 F 63-71 16-20 116-156/56-86 95-97 PHYSICAL EXAM GENERAL: The patient is awake, alert, and fully oriented,sitting up in bed eating breakfast HEAD: Normal with no signs of trauma. LUNGS: Breath sounds equal, clear to auscultation bilaterally, no wheezes, no crackles, no accessory muscle use. HEART: Regular rate and rhythm, S1, S2 without murmur, rub or gallop. ABDOMEN: Soft, nontender, nondistended, normoactive bowel sounds, no guarding, no rebound, no hepatosplenomegaly, no masses. EXTREMITIES: 2+ pulses, warm, well-perfused, no edema. decrease sensation of RLE compared to the left. Muscle strength; 5/5 LE; hand relocation services specialist 5/5 b/l ; flexion/ extension of biceps/triceps intact NEUROLOGICAL: Cranial nerves II through XII grossly intact. Normal speech, gait not observed. PSYCH: Normal mood, normal affect. SKIN: Warm, dry, normal turgor, no rashes or lesions noted. LABS Laboratory Results - last 24 hr 10/11/18 10/12/18 10/12/18 21:45 12:13 16:44 POC Glucometer 110 114 Creatine Kinase Troponin I Prolactin 11.3 Urine Color Urine Appearance Urine pH Ur Specific [place] Urine Protein Urine Glucose (UA) Urine Ketones Urine Blood Urine Nitrite Urine Bilirubin Urine Urobilinogen Ur Leukocyte Esterase 10/13/18 10/13/18 10/13/18 10:10 10:30 11:33 POC Glucometer 145 Creatine Kinase 84 Troponin I < 0.02 Prolactin Urine Color Yellow Urine Appearance Clear Urine pH 5.0 Ur Specific [place] 1.015 Urine Protein Negative Urine Glucose (UA) Negative Urine Ketones Negative Urine Blood Negative Urine Nitrite Negative Urine Bilirubin Negative Urine Urobilinogen Negative Ur Leukocyte Esterase Negative HOSPITAL COURSE: Date of Admission:10/12/18 Date of Discharge: 10/13/18 88-year-old male with history hypertension, diabetes, TIA/CVA, peripheral neuropathy, dementia presents with right leg weakness and palpitations. Found to have acute MCA stroke on brain MRI. He was started on aspirin, statin and taty inhibitor. F/u lab work to monitor electrolytes. refer to neurology due to sellar mass found on brain imaging. 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 Echo here found to have mild dilation o ascending aorta. Also complained of increased urinary frequency, UA negative. Follows urology for prostate. Minutes to complete discharge: 40 Discharge Summary Reason For Visit: CARDIOVASCULAR ACCIDENT Current Active Problems Cerebrovascular accident (CVA) (Acute) Slurred speech (Acute) Condition: Improved - Instructions Diet, Activity, Other Instructions: You were admitted for weakness in right leg and you were found ot have an acute stroke. -Follow up with PCP, will need repeat lipid panel in 6-8 weeks to ensure cholesterol is controlled , if not then may need to add an additional agent for better hyperlipidemia management. -Please be advised that your medication list has been changed -We have started you on a new medication: Lipitor 40mg daily, aspirin 81mg daily , lisinopril 5mg daily -you will need repeat lab work to monitor your electrolytes since we are starting you on a new medication (lisinopril ). -continue taking your neurontin -stop taking diclofenac, simvastatin, oxybutynin, meclizine Follow up with Provider Network Manager with in one week for jail Holter monitoring, to evaluate for arrhythmias. we referred you to Dr. Barajas Follow up neurologist to review head imaging findings. dr. James Follow up with your primary with in one week. You need echo repeated in 4 weeks to evaluate the aortic dilation seen on echo here. Referrals: Enrique Barajas MD [Staff Physician] - 2 Weeks Wilian Zhou MD [Primary Care Provider] - 1 Week Benije James MD [Staff Physician] - 1 Week Disposition: HOME - Home Medications Comprehensive Discharge Medication List: Ambulatory Orders Aspirin [ASA -] 81 mg PO DAILY 30 Days #30 tab.chew 10/13/18 Atorvastatin Ca [Lipitor] 40 mg PO HS 30 Days #30 tablet 10/13/18 Gabapentin [Neurontin] 600 mg PO HS 30 Days #30 capsule 10/13/18 Lisinopril 5 mg PO DAILY 30 Days #30 tablet 10/13/18 Miscellaneous Drug Not In Syst [Outpatient Lab Test] 1 each ASDIR #1 misc This patient is new to me today: Yes Date on this admission: 10/13/18 Emergency Visit: Yes ED Registration Date: 10/12/18 Care time: The patient presented to the Emergency Department on the above date and was hospitalized for further evaluation of their emergent condition. Critical Care patient: No - Discharge Referral Referred to [facility] No Physician Referral: Wilian Calderon MD ([facility])
--- NOTE | 2018-10-14 12:22 | EKG ---
Test Reason : Blood Pressure : / mmHG Vent. Rate : 065 BPM Atrial Rate : 065 BPM P-R Int : 272 ms QRS Dur : 098 ms QT Int : 410 ms P-R-T Axes : 042 -08 038 degrees QTc Int : 426 ms SINUS RHYTHM WITH 1ST DEGREE A-V BLOCK INCOMPLETE RIGHT BUNDLE BRANCH BLOCK INFERIOR INFARCT , AGE UNDETERMINED ABNORMAL ECG WHEN COMPARED WITH ECG OF 11-OCT-2018 15:42, INFERIOR INFARCT IS NOW PRESENT Confirmed by MARICHUY BRAVO MD ([id number]) on 10/14/2018 12:22:19 PM Referred By: Duy TARANGO Confirmed By:MARICHUY BRAVO MD
== END 2018-10-13 13:00 | disposition home or self-care (01) | DRG 65 ==
LOC: JER 15:35 → INTOOBSV 20:30 → JERBED 20:30 → J4S 23:27 → OBSVTOIN 10-12 13:09
PROVIDERS: ADMIT Internal Medicine; ATTEND Internal Medicine
DX: I63.9 Cerebral infarction, unspecified (principal); G81.91 Hemiplegia, unspecified affecting right dominant side; I10 Essential (primary) hypertension; E78.5 Hyperlipidemia, unspecified; N40.0 Benign prostatic hyperplasia without lower urinary tract symptoms; G93.9 Disorder of brain, unspecified; I25.10 Atherosclerotic heart disease of native coronary artery without angina pectoris; E11.42 Type 2 diabetes mellitus with diabetic polyneuropathy
CPT/HCPCS: 36415; 70450-TC; 70553-TC; 71045-TC-FY; 80048; 80053; 80061; 81003; 82550; 82803; 82962; 83090; 83690; 83721; 83735; 84100; 84146; 84443; 84484; 85025; 85610; 86850; 86900; 86901; 93005; 93010; 93306-TC; 93880-TC; 97116-GP; 97161-GP; 99285-25; C1887; G0378; J0131

== ENCOUNTER 2018-12-27 11:57 | Emergency (ER) | payer OTHER ==
[2018-12-27 12:08] VITALS: BMI 26.6
--- NOTE | 2018-12-27 12:32 | PDOC ---
History of Present Illness - General Chief Complaint: Hematuria Stated Complaint: HEMATURIA - History of Present Illness Initial Comments: 12/27/18 12:30 88 yo male with PMH HTN, recent CVA, BPH, NIDDM with peripheral neuropathy presents with suprapubic fullness that began this morning in addition to a small amount of blood noted in the urine. He denies any recent fevers or chills or any other symptoms recently. He states he follows with Dr. Wilson for urology and saw him last month and that everything was "normal" Past History - Past Medical History Allergies/Adverse Reactions: Allergies Allergy/AdvReac Type Severity Reaction Status Date / Time No Known Allergies Allergy Verified 10/11/18 15:40 Home Medications: Ambulatory Orders Aspirin Coated [Ecotrin -] 81 mg PO DAILY 12/27/18 Atorvastatin Calcium 40 mg PO HS 12/27/18 Gabapentin [Neurontin] 600 mg PO DAILY 12/27/18 Linaclotide [Linzess] 290 mcg PO DAILY 12/27/18 Lisinopril [Zestril] 10 mg PO DAILY 12/27/18 Oxybutynin Chloride [Oxybutynin Chloride ER] 10 mg PO DAILY 12/27/18 Pantoprazole Sodium [Protonix -] 40 mg PO DAILY 12/27/18 Rifaximin [Xifaxan] 550 mg PO TID 12/27/18 Tamsulosin HCl [Flomax -] 0.4 mg PO BID 12/27/18 Anemia: No Asthma: No Cardiac Disorders: Yes (CAD) CVA: Yes (06/2012) COPD: No CHF: No Dementia: No Diabetes: Yes GI Disorders: Yes (GERD;DIVERTICULITIS; HEMORRHOIDS;GASTRITIS) Disorders: Yes (H/O PROSTATE INFLAMMATION) HTN: Yes Hypercholesterolemia: Yes Liver Disease: No Seizures: No Thyroid Disease: No - Surgical History Abdominal Surgery: Yes (UMBILICAL HERNIA) Appendectomy: No Cardiac Surgery: No Cholecystectomy: Yes GI Surgery: Yes (Haital hernia 2004) Lung Surgery: No Neurologic Surgery: No Orthopedic Surgery: No - Immunization History Immunization Up to Date: Yes - Suicide/Smoking/Psychosocial Hx Smoking History: Smoker current status UNK Have you smoked in the past 12 months: No Number of Cigarettes Smoked Daily: 40 If you are a former smoker, when did you quit?: 1972 Hx Alcohol Use: No Drug/Substance Use Hx: No Substance Use Type: None Hx Substance Use Treatment: No *Physical Exam - Vital Signs Last Vital Signs Temp Pulse Resp BP Pulse Ox 98.2 F 72 20 190/99 H 99 12/27/18 12:07 12/27/18 12:07 12/27/18 12:07 12/27/18 12:07 12/27/18 12:07 - Physical Exam Comments: 12/27/18 12:30 GEN: A&O, no acute distress HEENT: PERRL, EOMI, moist mucus membranes NECK: supple HEART: RRR, no murmurs noted LUNGS: CTA b/l ABDOMEN: Soft, minimal tenderness to palpation in suprapubic region EXTREMITIES: NEURO: Moderate Sedation - Procedure Monitoring Vital Signs: Procedure Monitoring Vital Signs Temperature 98.2 F 12/27/18 12:07 Pulse Rate 72 12/27/18 12:07 Respiratory Rate 20 12/27/18 12:07 Blood Pressure 190/99 H 12/27/18 12:07 O2 Sat by Pulse Oximetry (%) 99 12/27/18 12:07 ED Treatment Course - LABORATORY CBC & Chemistry Diagram: 12/27/18 13:20 12/27/18 13:20 Medical Decision Making - Medical Decision Making 12/27/18 12:52 88 yo male presents with complaint of suprapubic fullness which improves on urination and some blood in his urine this morning. At this point he states he is not having any further symptoms. CBC, CMP, UA, CT abdomen/pelvis pending. 12/27/18 15:54 CBC, CMP, UA unremarkable. CT a/p pending official read though no obvious bladder enlargement / bladder mass noted. Pending official read and improvement of repeat b.p., pt can likely be discharged with Urology follow up. 12/27/18 17:05 Pt expressed desire to leave. Explained the importance of waiting for official CT report, however patient adamant on leaving. Refused to sign AMA form. IV site removed and patient eloped *DC/Admit/Observation/Transfer Diagnosis at time of Disposition: Hematuria, Urinary retention, Hypertension - Discharge Dispostion Disposition: ELOPED Condition at time of disposition: Guarded Decision to Admit order: No - Referrals Referrals: Navin Wilson MD [Staff Physician] - - Patient Instructions Printed Discharge Instructions: DI for Hematuria, DI for Urinary Retention in Men Additional Instructions: You were seen in the emergency department today for some abdominal fullness and a small amount of blood in your urine. Your blood pressure was noted to be elevated on arrival however it resolved along with your symptoms. Your labs and urine studies were normal. A CT scan was done to make sure there were no masses or concerning findings in your abdomen and the scan was negative. You should continue to take all of your medications as they are prescribed. You should follow up with Dr. iWlson within 1 week or if you have any further or worsening symptoms. - Post Discharge Activity
--- NOTE | 2018-12-27 12:50 | PDOC ---
Attending Attestation - HPI HPI: 12/27/18 13:58 The patient is a 88 year old male, with a significant past medical history of hypertension, recent CVA without residual weakness, residual slow speech, BPH, NIDDM, peripheral neuropathy who presents to the emergency department with suprapubic heaviness since this morning. He states he also noticed his urine was slightly blood tinged this morning, and denies ever experiencing these symptoms in the past. The patient denies chest pain, shortness of breath, headache and dizziness. The patient denies fever, chills, nausea, vomit, diarrhea and constipation. The patient denies dysuria, frequency, urgency and hematuria. Allergies: NKDA Urologist: Dr. Wilson - Medical Decision Making 12/27/18 13:58 Documentation prepared by Maribell Jameson, acting as medical chemist for Carol Sprague MD <Maribell Jameson - Last Filed: 12/27/18 13:58> - Resident Resident Name: Mynor Quevedo - ED Attending Attestation I have performed the following: I have examined & evaluated the patient, The case was reviewed & discussed with the resident, I agree w/resident's findings & plan, Exceptions are as noted - Physicial Exam PE: 12/27/18 13:59 GENERAL: The patient is in no acute distress. NECK: Normal range of motion, supple without lymphadenopathy, JVD, or masses. LUNGS: Breath sounds equal, clear to auscultation bilaterally. No wheezes, and no crackles. HEART:Regular rate and rhythm, normal S1 and S2 without murmur, rub or gallop. ABDOMEN: Soft, nontender EXTREMITIES: Normal range of motion, no edema. NEUROLOGICAL: Cranial nerves II through XII grossly intact. Normal speech. No focal neurological deficits. MUSCULOSKELETAL: Back non-tender to palpation, no CVA tenderness SKIN: Warm, Dry, normal turgor, no rashes or lesions noted. - Medical Decision Making Mr Shah presents to the ER with a complaint of suprapubic tenderness/ discomfort No fevers or chills No flank pain No trauma No nausea, vomiting, diarrhea Pt saw a drop of blood in his urine this morning Non more bleeding since 12/27/18 13:59 Laboratory Tests 12/27/18 12/27/18 12/27/18 13:20 13:20 13:40 WBC 5.7 Hgb 15.1 Hct 44.3 Plt Count 126 L D INR 1.02 Urine Blood Negative Urine Nitrite Negative Ur Leukocyte Esterase Negative CT - 12/27/18 16:54 CT not resulted Pt son states he is leaving now He will not wait for results He is leaving Against My medical advise Pt refusing to sign AMA paperwork He has ELOPED from the ER <Carol Sprague - Last Filed: 12/28/18 21:14>
[2018-12-27 13:25] LABS: BASO % 0.6 % (0-2.0); EOS % 0.7 % (0-4.5); HEMATOCRIT 44.3 % (35.4-49); HEMOGLOBIN 15.1 GM/dL (11.7-16.9); LYMPH % 21.4 % (8-40); MCHC 34.2 g/dl (32.0-35.9); MEAN CELL VOLUME 90.9 fl (80-96); MEAN PLT VOLUME 9.4 fl (7.5-11.1); MONO % 6.2 % (3.8-10.2); NEUT % 71.1 % (42.8-82.8); PLATELET COUNT 126 K/MM3 (134-434); RBC 4.87 M/mm3 (4.00-5.60); WHITE BLOOD COUNT 5.7 K/mm3 (4.0-10.0)
[2018-12-27 13:47] LABS: INR 1.02 (0.83-1.09)
[2018-12-27 13:53] LABS: URINE APPEARANCE CLEAR; URINE BILIRUBIN NEGATIVE (<2.0 mg/dL); URINE COLOR LTYELLOW; URINE GLUCOSE (UA) NEGATIVE (NEGATIVE); URINE KETONE NEGATIVE (NEGATIVE); URINE LEUK ESTERASE NEGATIVE (NEGATIVE); URINE NITRITE NEGATIVE (NEGATIVE); URINE PROTEIN NEGATIVE (NEGATIVE); URINE UROBILINOGEN NEGATIVE mg/dL (0.2-1.0)
[2018-12-27 14:00] LABS: ALBUMIN 3.9 g/dl (3.4-5.0); ALK PHOS 69 U/L (45-117); ANION GAP 2 MMOL/L (8-16); BILIRUBIN,TOTAL 1.1 mg/dL (0.2-1); BLOOD UREA NITROGEN 13 mg/dL (7-18); CALCIUM 8.5 mg/dL (8.5-10.1); CHLORIDE 108 mmol/L (98-107); CO2 30 mmol/L (21-32); GLUCOSE,RANDOM 101 mg/dL (74-106); POTASSIUM 4.1 mmol/L (3.5-5.1); SGOT/AST 18 U/L (15-37); SGPT/ALT 24 U/L (13-61); SODIUM 139 mmol/L (136-145); TOT PROT 6.9 g/dl (6.4-8.2)
[2018-12-27 16:05] VITALS: BP 166/70; PULSE 70; TEMP 98.3
== END 2018-12-27 17:13 | disposition left against medical advice (07) ==
LOC: JER 11:57
DX: I10 Essential (primary) hypertension (principal); R31.9 Hematuria, unspecified; R33.8 Other retention of urine; N40.0 Benign prostatic hyperplasia without lower urinary tract symptoms; E11.40 Type 2 diabetes mellitus with diabetic neuropathy, unspecified; Z79.84 Long term (current) use of oral hypoglycemic drugs; I69.828 Other speech and language deficits following other cerebrovascular disease
CPT/HCPCS: 36415; 74176-TC; 80053; 81003; 85025; 85610; 87086; 99283-25

== ENCOUNTER 2019-03-23 22:30 | Emergency (ER) | payer OTHER | END 2019-03-24 01:05 | disposition home or self-care (01) | LOC: JER 03-24 01:05 | DX: R07.89 Other chest pain (principal); W18.2XXA Fall in (into) shower or empty bathtub, initial encounter; Y93.E1 Activity, personal bathing and showering; Y92.031 Bathroom in apartment as the place of occurrence of the external cause; Y99.8 Other external cause status; I10 Essential (primary) hypertension; E78.5 Hyperlipidemia, unspecified; K21.9 Gastro-esophageal reflux disease without esophagitis; N40.0 Benign prostatic hyperplasia without lower urinary tract symptoms; E11.9 Type 2 diabetes mellitus without complications; Z79.84 Long term (current) use of oral hypoglycemic drugs; Z86.73 Personal history of transient ischemic attack (TIA), and cerebral infarction without residual deficits; R91.8 Other nonspecific abnormal finding of lung field ==

== ENCOUNTER 2019-03-26 08:54 | Emergency (ER) | payer OTHER ==
[2019-03-26 09:00] VITALS: TEMP 97.6; BMI 28.1
--- NOTE | 2019-03-26 09:05 | PDOC ---
History of Present Illness - General Chief Complaint: Constipation Stated Complaint: CONSTIPATION/ ABD PAIN Time Seen by Provider: 03/26/19 09:05 History Source: Patient Exam Limitations: Language Barrier - History of Present Illness Travel History: No Initial Comments: 03/26/19 09:07 88 y/o M w/ PMHx CVA x 2 (2010, 2014), TIA, HTN, HLD, DM (diet-controlled), peripheral neuropathy, BPH, GI bleed 2/2 Aggrenox therapy presents with 4 day history of constipation. He endorses lower abdominal pain which he describes as constant 6/10 sharp pain.No alleviating or aggravating factors. Denies fever or chills. No recent illness. He is still able to pass gas and has nausea. He has colonoscopy one year ago which he says showed diverticulosis. No recent travel or change in diet. He states that 5 days ago he fell at home, came to ER and was given Oxycodone for pain. Surgical history is significant for hiatal hernia repair. Denies CP,MCKEON, SOB, palpitations, fever or chills. Timing/Duration: reports: constant Quality: reports: moderate Abdominal Pain Onset Location: reports: RLQ, LLQ Pain Radiation: reports: no radiation Treatment Prior to Arrive: improves with: analgesics Aggravating Factors: improves with: None Alleviating Factors: improves with: None Past History - Travel Traveled outside of the country in the last 30 days: No Close contact w/someone who was outside of country & ill: No - Past Medical History Allergies/Adverse Reactions: Allergies Allergy/AdvReac Type Severity Reaction Status Date / Time No Known Allergies Allergy Verified 03/26/19 08:59 Home Medications: Ambulatory Orders Aspirin Coated [Ecotrin -] 81 mg PO DAILY 12/27/18 Atorvastatin Calcium 40 mg PO HS 12/27/18 Gabapentin [Neurontin] 600 mg PO DAILY 12/27/18 Linaclotide [Linzess] 290 mcg PO DAILY 12/27/18 Lisinopril [Zestril] 10 mg PO DAILY 12/27/18 Oxybutynin Chloride [Oxybutynin Chloride ER] 10 mg PO DAILY 12/27/18 Pantoprazole Sodium [Protonix -] 40 mg PO DAILY 12/27/18 Rifaximin [Xifaxan] 550 mg PO TID 12/27/18 Tamsulosin HCl [Flomax -] 0.4 mg PO BID 12/27/18 Oxycodone HCl/Acetaminophen [Percocet 5/325 -] 1 tab PO TID #15 tablet MDD 3 Anemia: No Asthma: No Cardiac Disorders: Yes (CAD) CVA: Yes (06/2012) COPD: No CHF: No Dementia: No Diabetes: Yes GI Disorders: Yes (GERD;DIVERTICULITIS; HEMORRHOIDS;GASTRITIS) Disorders: Yes (H/O PROSTATE INFLAMMATION) HTN: Yes Hypercholesterolemia: Yes Liver Disease: No Seizures: No Thyroid Disease: No - Surgical History Abdominal Surgery: Yes (UMBILICAL HERNIA) Appendectomy: No Cardiac Surgery: No Cholecystectomy: Yes GI Surgery: Yes (Haital hernia 2004) Lung Surgery: No Neurologic Surgery: No Orthopedic Surgery: No - Immunization History Immunization Up to Date: Yes - Suicide/Smoking/Psychosocial Hx Smoking History: Never smoked Have you smoked in the past 12 months: No Number of Cigarettes Smoked Daily: 40 If you are a former smoker, when did you quit?: 1972 Information on smoking cessation initiated: No Hx Alcohol Use: No Drug/Substance Use Hx: No Substance Use Type: None Hx Substance Use Treatment: No Review of Systems - Review of Systems Able to Perform ROS?: Yes Is the patient limited Belarusian proficient: Yes Constitutional: No: Chills, Fever, Loss of Appetite HEENTM: No: Recent change in vision Respiratory: No: Cough, Shortness of Breath Cardiac (ROS): No: Chest Pain, Edema ABD/GI: Yes: Constipated, Nausea. No: Rectal Bleeding, Vomiting All Other Systems: Reviewed and Negative *Physical Exam - Vital Signs Last Vital Signs Temp Pulse Resp BP Pulse Ox 97.6 F 68 18 157/91 98 03/26/19 08:57 03/26/19 08:57 03/26/19 08:57 03/26/19 08:57 03/26/19 08:57 - Physical Exam General Appearance: Yes: Appropriately Dressed, Mild Distress HEENT: positive: SADIA Neck: positive: Supple Respiratory/Chest: positive: Lungs Clear, Normal Breath Sounds. negative: Respiratory Distress, Accessory Muscle Use Cardiovascular: positive: Regular Rhythm, Regular Rate, S1, S2. negative: Edema , JVD, Murmur Vascular Pulses: Dorsalis-Pedis (R): 2+, Doralis-Pedis (L): 2+ Gastrointestinal/Abdominal: positive: Normal Bowel Sounds, Flat, Soft, Tenderness (RLQ) Rectal Exam: positive: normal rectal tone, other (stool in rectal vault ) Musculoskeletal: negative: CVA Tenderness Extremity: positive: Normal Range of Motion Integumentary: positive: Normal Color, Dry, Warm Neurologic: positive: tapper hand II-XII NML intact, Fully Oriented, Alert, Normal Mood/ Affect, Motor Strength 03/03 ED Treatment Course - LABORATORY CBC & Chemistry Diagram: 03/26/19 11:00 03/26/19 11:00 Medical Decision Making - Medical Decision Making 03/26/19 09:58 88 y/o M w/ PMHx CVA x 2 (2010, 2014), TIA, HTN, HLD, DM (diet-controlled), peripheral neuropathy, BPH, GI bleed 2/2 Aggrenox therapy presents with 4 day history of constipation. Most likely 2/2 to narcotic use. Will obtain basic labs and CT abdomen to r/o obstruction.
--- NOTE | 2019-03-26 09:16 | PDOC ---
Attending Attestation - Resident Resident Name: Rigo Kumar - ED Attending Attestation I have performed the following: I have examined & evaluated the patient, The case was reviewed & discussed with the resident, I agree w/resident's findings & plan - HPI HPI: 03/26/19 09:17 89 year old male with PMH HTN, HLDm, GERD, CVA, BPH, NIDDM p/w constipation x 4 days.. +nausea, mild abdominal pain and +flatus. Fell in [place] on 03/23/19, where he struck right lower back against chair several days ago - seen in the ED, CXR neg for pathology, incidentaloma noted - Chest x- ray from 03/24 revealing vague nodular density at the right upper lobe new since the prior study, correlation and follow-up is recommended and these results are provided to the patient and his family He was dc'd 03/24 from ED with rx for oxycodone, which he has been taking with symptomatic improvement, then developed constipation PSHx hiatal hernia repair 03/26/19 10:28 03/26/19 10:28 03/26/19 10:30 - Physicial Exam PE: 03/26/19 09:16 Agree with the resident's HPI and PE as documented in the electronic medical record. NAD, well appearing, EOMI, PERRL, MMM, nl conjunctiva, anicteric; neck supple. lungs clear, RRR, abdomen soft midline hernia repair scar. diffuse lower abdominal tenderness, no rebound or guarding. +right sided lateral chest/ abdominal wall tenderness, no CVAT. Back nontender. BOND x4, no focal neuro deficits. No peripheral edema. normal color for ethnicity, WWP. rectal exam by resident, unremarkable. 03/26/19 10:31 - Medical Decision Making 03/26/19 09:16 See HPI for details. Prior notes reviewed, including admissions, discharges and consultations. DDx abdominal pain: Renal colic, biliary colic, metabolic/electrolyte derangements. GERD, PUD, esophageal spasm, pancreatitis, hepatitis, constipation , colitis, gastroenteritis, cholecystitis, UTI, pyelonephritis, ileus, SBO, medication side effect, hernia, back contusion, rib fracture, pulmonary/rib contusion, effusion. Vital signs reviewed, wnl. laboratory results and imaging reviewed, basic labs and lytes wnl, notable for neg guaiac, nl LFTs/lipase. UA_neg for infection or blood. K mildly elevated 5.9, likely hemolysis, as pt unsymptomatic, normal Cr and no EKG changes EKG normal sinus rhythm at 59 bpm, prolonged NC interval. 1st degree AVB, narrow QRS, ST and T wave segments and morphology normal. Nonspecific T wave abnormalities ED course - analgesia with toradol, topical lidoderm patch, reassess- - likely oxycodone side effect causing constipation. CT a/p to eval for intra abdominal source/SBO or other acute pathology as cause for constipation for elderly gentleman - CT a/p neg for acute pathology, renal cysts at baseline. no effusion, lung bases appear normal and no infiltrative/effusion pattern. - cautioned on side effect profile of meds such as oxycodone and constipation risk alternatives provided, oxy only as needed. stool softeners and fiber diet/ hydration advised to help with constipation. - analgesia regimen adjusted for rt flank/chest wall contusion after fall from 4 days ago. no fx/effusion or acute injuries noted externally or via CT at the bases of affected rt side. Pt to be discharged in stable condition. Patient and family made aware of impression and plan, return precautions discussed (including but not limited to worsening pain or symptoms), fevers, or signs of infection, chest pain, respiratory distress, inability to tolerate oral intake, dehydration, syncope, or neurologic changes). Follow up with PMD as recommended, follow up information provided, take medications as instructed for duration of time. continue with supportive care, avoid triggers and precipitants. All questions answered to patient's satisfaction and expressed understanding and comfort with this. Patient does not suffer from an acute life-threatening medical condition at this time and is safe for outpatient follow-up. 03/26/19 14:46 03/26/19 14:51 *DC/Admit/Observation/Transfer Diagnosis at time of Disposition: Medication side effect, Abdominal pain, Constipation - Discharge Dispostion Disposition: HOME Condition at time of disposition: Improved Decision to Admit order: No - Prescriptions Prescriptions: Cyclobenzaprine HCl [Flexeril 10 mg] 10 mg PO BID PRN #12 tablet PRN Reason: Muscle Spasms Docusate Sodium [Colace -] 100 mg PO TID PRN #30 capsule PRN Reason: Constipation Lidocaine 5% Patch [Lidoderm Patch -] 1 patch TP DAILY PRN #7 patch PRN Reason: Pain Sennosides [Senna] 2 tab PO BID PRN #20 tablet PRN Reason: Constipation - Referrals Referrals: [facility] [place] [Provider Group] [facility] [Provider Group] - Patient Instructions Printed Discharge Instructions: Increased Dietary Fiber May Improve Constipation Conditions With Pelvic Bernardo, DI for Abdominal Pain-Adult, DI for Constipation Additional Instructions: - You were seen in the emergency department for constipation. Return if worsening symptoms. your CT results were negative for acute pathology or blockage or infection. - You have been prescribed docusate (colace) and senna. These should be taken every day. If you do not have regular bowel movements after 2-3 days, you may add Miralax or Metamucil daily. These can be bought at any pharmacy and are available over the counter. - High fiber diet encouraged: beans, fruits, vegetables, whole grains. - Make sure you are drinking plenty of water, at least 6-8 cups per day ideally. - You should follow up with your primary doctor within the next 2-3 days for evaluation and to help you adjust medications for your constipation. - this is most likely from the oxycodone you have been taking causing your constipation. only take this as needed for pain and with stool softeners. you can also take flexeril as needed for muscle spasms in the affected area and topical lidoderm patch as needed 12 hours on and 12 hours off , tylenol for the pain 650mg to 975 mg every 6 hours as needed for pain control Discharge: Take Colace 100-200 mg up to three times per day. You may take along with Senokot 1-2 tabs, ingest with full glass of water. Maintain fluid intake 6- 8 glasses per day. Please increase fibers in your diet. You may also take Milk of Magnesia 30 mL as needed for constipation, you may repeat in 2 hours again if no bowel movement. - Fuiste atendido en el servicio de urgencias por estreimiento. Volver si empeoran los sntomas. los resultados de chávez TC fueron negativos para patologa aguda, bloqueo o infeccin. - Te zuluaga recetado docusate (colace) y senna. Estos deben tomarse todos los molina. Si no tiene evacuaciones intestinales regulares despus de 2 o 3 molina, puede agregar Miralax o Metamucil diariamente. Estos se pueden comprar en cualquier farmacia y estn disponibles sin receta. - Dieta wesley en fibra estimulada: frijoles, frutas, verduras, granos integrales. - Asegrate de beber edward agua, idealmente al menos 6-8 tazas por da. - Debe hacer un seguimiento con chávez mdico de cabecera dentro de los siguientes 2 a 3 molina para wendi evaluacin y para ayudarlo a ajustar los medicamentos para chávez estreimiento. - esto es muy probable debido a la oxicodona que shields estado tomando y que causa chávez estreimiento. solo tome esto cuando sea necesario para el dolor y con ablandadores de heces. Tambin puede jaime flexeril segn sea necesario para los espasmos musculares en el gabriella afectada y el parche lidoderm tpico segn sea necesario 12 horas seguidas y 12 horas de descanso, tylenol para el dolor 650 mg a 975 mg cada 6 horas segn sea necesario para el control del dolor Descarga: [place] Colace 100-200 mg hasta marbella veces por da. Puede jaime junto con Senokot 1-2 tabs, ingerir con un vaso lleno de agua. Mantener la ingesta de lquidos de 6 a 8 vasos por da. Por favor aumenta las fibras en tu dieta. Tambin puede jaime Leche de magnesia 30 ml segn sea necesario para el estreimiento, puede repetir en 2 horas nuevamente si no hay movimiento intestinal. Print Language: TAMAZIGHT - Post Discharge Activity Heart Score/ECG Review #1 ECG reviewed & interpreted by me at: 12:25 General ECG Interpretation: Sinus Rhythm, Normal Intervals, No acute ischemic changes Compared to previous ECG there are: No significant change 03/26/19 14:11 EKG normal sinus rhythm at 59 bpm, prolonged NC interval. 1st degree AVB, narrow QRS, ST and T wave segments and morphology normal. Nonspecific T wave abnormalities
[2019-03-26] MEDS ORDERED: SODIUM CHLORIDE 1,000 ML IV STA (09:47)
[2019-03-26] MEDS ORDERED: LIDOCAINE 5% TOPICAL PATCH TP ONE ×2 (10:27)
[2019-03-26] MEDS ORDERED: KETOROLAC TROMETHAMINE 10 MG TABLET PO ONE (10:27)
[2019-03-26] MEDS ORDERED: KETOROLAC TROMETHAMINE 15 MG/ML VIAL IVPUSH ONE (10:41)
[2019-03-26] MEDS ORDERED: KETOROLAC TROMETHAMINE 15 MG/ML VIAL ONE (10:42)
[2019-03-26] MEDS ORDERED: LIDOCAINE 5% TOPICAL PATCH ONE (10:42)
[2019-03-26 11:07] LABS: BASO % 0.6 % (0-2.0); EOS % 0.8 % (0-4.5); HEMATOCRIT 44.8 % (35.4-49); HEMOGLOBIN 14.5 GM/dL (11.7-16.9); LYMPH % 19.9 % (8-40); MCH 29.7 pg (25.7-33.7); MCHC 32.4 g/dl (32.0-35.9); MEAN CELL VOLUME 91.7 fl (80-96); MEAN PLT VOLUME 9.7 fl (7.5-11.1); NEUT % 72.7 % (42.8-82.8); PLATELET COUNT 120 K/MM3 (134-434); RBC 4.88 M/mm3 (4.00-5.60); RDW 14.9 % (11.9-15.9); WHITE BLOOD COUNT 5.7 K/mm3 (4.0-10.0)
[2019-03-26 11:40] LABS: ALBUMIN 3.9 g/dl (3.4-5.0); BILIRUBIN,TOTAL 1.3 mg/dL (0.2-1); CREATININE 1.1 mg/dL (0.55-1.3); POTASSIUM 5.9 mmol/L (3.5-5.1); TOT PROT 7.2 g/dl (6.4-8.2)
[2019-03-26 12:44] LABS: URINE APPEARANCE CLEAR; URINE BILIRUBIN NEGATIVE (NEGATIVE); URINE COLOR YELLOW; URINE GLUCOSE (UA) NEGATIVE (NEGATIVE); URINE KETONE NEGATIVE (NEGATIVE); URINE LEUK ESTERASE NEGATIVE (NEGATIVE); URINE NITRITE NEGATIVE (NEGATIVE); URINE PROTEIN NEGATIVE (NEGATIVE); URINE UROBILINOGEN 0.2 mg/dL (0.2-1.0)
[2019-03-26 15:28] LABS: CALCIUM 8.9 mg/dL (8.5-10.1); POTASSIUM 4.6 mmol/L (3.5-5.1)
--- NOTE | 2019-03-26 15:40 | EKG ---
Test Reason : Blood Pressure : / mmHG Vent. Rate : 059 BPM Atrial Rate : 059 BPM P-R Int : 318 ms QRS Dur : 100 ms QT Int : 426 ms P-R-T Axes : 034 -16 037 degrees QTc Int : 421 ms SINUS BRADYCARDIA WITH 1ST DEGREE A-V BLOCK INCOMPLETE RIGHT BUNDLE BRANCH BLOCK INFERIOR INFARCT (CITED ON OR BEFORE 24-JUN-2015) POSSIBLE ANTERIOR INFARCT , AGE UNDETERMINED ABNORMAL ECG WHEN COMPARED WITH ECG OF 13-OCT-2018 08:40, NO SIGNIFICANT CHANGE WAS FOUND Confirmed by Preston Escobar MD ([id number]) on 03/26/2019 3:39:56 PM Referred By: Confirmed By:Preston Escobar MD
[2019-03-26 16:46] VITALS: BP 193/104; PULSE 70
[2019-03-26] MEDS ORDERED: LIDOCAINE PATCH REMOVAL MC SCH (22:00)
== END 2019-03-26 16:46 | disposition home or self-care (01) ==
LOC: JER 08:54
PROC: 3E0337Z Introduction of Electrolytic and Water Balance Substance into Peripheral Vein, Percutaneous Approach (ICD-10-PCS; principal; 2019-03-26)
PROC: 3E0333Z Introduction of Anti-inflammatory into Peripheral Vein, Percutaneous Approach (ICD-10-PCS; 2019-03-26)
DX: K59.03 Drug induced constipation (principal); T40.2X5A Adverse effect of other opioids, initial encounter; Y92.038 Other place in apartment as the place of occurrence of the external cause; I10 Essential (primary) hypertension; E11.9 Type 2 diabetes mellitus without complications; E78.5 Hyperlipidemia, unspecified; N40.0 Benign prostatic hyperplasia without lower urinary tract symptoms; Z86.73 Personal history of transient ischemic attack (TIA), and cerebral infarction without residual deficits
CPT/HCPCS: 36415; 74177-TC; 80048; 80053; 81003; 82272; 83690; 85025; 93005; 93010; 96361; 96374; 99282-25; J7030

== ENCOUNTER 2019-05-15 09:03 | Emergency (ER) | payer OTHER ==
[2019-05-15 09:14] VITALS: BMI 27.2
[2019-05-15 10:25] LABS: BASO % 0.5 % (0-2.0); EOS % 0.7 % (0-4.5); HEMATOCRIT 40.9 % (35.4-49); HEMOGLOBIN 13.4 GM/dL (11.7-16.9); LYMPH % 23.7 % (8-40); MCH 29.4 pg (25.7-33.7); MCHC 32.8 g/dl (32.0-35.9); MEAN CELL VOLUME 89.5 fl (80-96); MONO % 8.2 % (3.8-10.2); NEUT % 66.9 % (42.8-82.8); PLATELET COUNT 130 K/MM3 (134-434); RBC 4.57 M/mm3 (4.00-5.60); RDW 15.1 % (11.9-15.9); WHITE BLOOD COUNT 4.5 K/mm3 (4.0-10.0)
[2019-05-15] MEDS ORDERED: ACETAMINOPHEN 325 MG TABLET (FP) PO ONE (10:51)
[2019-05-15 10:52] LABS: ALBUMIN 3.7 g/dl (3.4-5.0); BILIRUBIN,TOTAL 0.6 mg/dL (0.2-1); BLOOD UREA NITROGEN 11.1 mg/dL (7-18); CALCIUM 8.6 mg/dL (8.5-10.1); CREATININE 1.1 mg/dL (0.55-1.3); N-TERMINAL BNP 501.5 pg/ml (5-450); POTASSIUM 4.3 mmol/L (3.5-5.1); TOT PROT 6.5 g/dl (6.4-8.2)
--- NOTE | 2019-05-15 11:16 | PDOC ---
Documentation entered by Iram Curry SCRIBE, acting as scribe for Carol Sprague MD. Carol Sprague MD: This documentation has been prepared by the Antoinette murphy Brenda, SCRIBE, under my direction and personally reviewed by me in its entirety. I confirm that the documentation accurately reflects all work, treatment, procedures, and medical decision making performed by me. History of Present Illness - General Chief Complaint: Edema Stated Complaint: Swelling on Jacoby.LE/SOB Time Seen by Provider: 05/15/19 09:22 History Source: Family Exam Limitations: No Limitations - History of Present Illness Initial Comments: 05/15/19 11:00 The patient is an 89 year old male, with a significant PMH of CVA x 2 (2010, 2014), TIA, HTN, HLD, DM (diet-controlled), peripheral neuropathy, BPH and GI bleed 2/2 Aggrenox therapy, who presents to the emergency department with 1 month of progressively worsening bilateral leg swelling. As per patients son, by the bedside the patient reports having leg swelling for a while, but it recently became more severe accompanied by ankle joint pain. The patient also notes feeling crampy in the mornings, and some SOB. The patient also notes no longer taking DM medications, as per Doctor instructions. The patient denies trauma. Denies chest pain, headache and dizziness. Denies fever, chills, nausea, vomiting, diarrhea and constipation. Denies dysuria, frequency, urgency and hematuria. Denies any other symptoms. Allergies: NKA, NKDA Past surgical history: Umbilical hernia and hiatal hernia Social history: Denies tobacco or alcohol use. PCP: [facility] [place] [facility] [place] Past History - Past Medical History Allergies/Adverse Reactions: Allergies Allergy/AdvReac Type Severity Reaction Status Date / Time No Known Allergies Allergy Verified 03/26/19 08:59 Home Medications: Ambulatory Orders Aspirin Coated [Ecotrin -] 81 mg PO DAILY 12/27/18 Atorvastatin Calcium 40 mg PO HS 12/27/18 Gabapentin [Neurontin] 600 mg PO BID 12/27/18 Linaclotide [Linzess] 290 mcg PO DAILY 12/27/18 Lisinopril [Zestril] 10 mg PO DAILY 12/27/18 Oxybutynin Chloride [Oxybutynin Chloride ER] 10 mg PO DAILY 12/27/18 Pantoprazole Sodium [Protonix -] 40 mg PO DAILY 12/27/18 Rifaximin [Xifaxan] 550 mg PO TID 12/27/18 Tamsulosin HCl [Flomax -] 0.4 mg PO BID 12/27/18 Cyclobenzaprine HCl [Flexeril 10 mg] 10 mg PO BID PRN #12 tablet 03/26/19 Docusate Sodium [Colace -] 100 mg PO TID PRN #30 capsule 03/26/19 Furosemide [Lasix] 20 mg PO DAILY #7 tablet 05/15/19 Anemia: No Asthma: No Cardiac Disorders: Yes (CAD) CVA: Yes (06/2012) COPD: No CHF: No Dementia: No Diabetes: Yes GI Disorders: Yes (GERD;DIVERTICULITIS; HEMORRHOIDS;GASTRITIS) Disorders: Yes (H/O PROSTATE INFLAMMATION) HTN: Yes Hypercholesterolemia: Yes Liver Disease: No Seizures: No Thyroid Disease: No - Surgical History Abdominal Surgery: Yes (UMBILICAL HERNIA) Appendectomy: No Cardiac Surgery: No Cholecystectomy: Yes GI Surgery: Yes (Haital hernia 2004) Lung Surgery: No Neurologic Surgery: No Orthopedic Surgery: No - Immunization History Immunization Up to Date: Yes - Suicide/Smoking/Psychosocial Hx Smoking History: Never smoked Have you smoked in the past 12 months: No Number of Cigarettes Smoked Daily: 40 If you are a former smoker, when did you quit?: 1972 Information on smoking cessation initiated: No Hx Alcohol Use: No Drug/Substance Use Hx: No Substance Use Type: None Hx Substance Use Treatment: No Review of Systems - Review of Systems Able to Perform ROS?: Yes Comments:: 05/15/19 11:01 GENERAL/CONSTITUTIONAL: No fever or chills. No weakness. HEAD, EYES, EARS, NOSE AND THROAT: No change in vision. No ear pain or discharge. No sore throat. CARDIOVASCULAR: No chest pain. RESPIRATORY: No cough, wheezing, or hemoptysis. GASTROINTESTINAL: No nausea, vomiting, diarrhea or constipation. GENITOURINARY: No dysuria, frequency, or change in urination. MUSCULOSKELETAL:+Bilateral leg swelling. +Ankle joint pain. No neck or back pain. SKIN: No rash NEUROLOGIC: No headache, vertigo, loss of consciousness, or change in strength/ sensation. ENDOCRINE: No increased thirst. No abnormal weight change. HEMATOLOGIC/LYMPHATIC: No anemia, easy bleeding, or history of blood clots. ALLERGIC/IMMUNOLOGIC: No hives or skin allergy. *Physical Exam - Vital Signs Last Vital Signs Temp Pulse Resp BP Pulse Ox 98.4 F 74 16 168/97 97 05/15/19 09:11 05/15/19 09:11 05/15/19 09:11 05/15/19 09:11 05/15/19 09:11 - Physical Exam Comments: 05/15/19 11:01 GENERAL: The patient is in no acute distress. HEAD: Normal with no signs of trauma. EYES: PERRLA, EOMI, sclera anicteric, conjunctiva clear. ENT: Ears normal, nares patent, oropharynx clear without exudates. Moist mucous membranes. NECK: Normal range of motion, supple without lymphadenopathy, JVD, or masses. LUNGS: Breath sounds equal, clear to auscultation bilaterally. No wheezes, and no crackles. HEART:Regular rate and rhythm, normal S1 and S2 without murmur, rub or gallop. ABDOMEN: Soft, nontender, normoactive bowel sounds. No guarding, no rebound. No masses palpable. EXTREMITIES:+bilateral 2+ pitting edema with more edema around ankles. Normal range of motion. No clubbing or cyanosis. No erythema. NEUROLOGICAL: Cranial nerves II through XII grossly intact. Normal speech. No focal neurological deficits. MUSCULOSKELETAL: Back non-tender to palpation, no CVA tenderness SKIN: Warm, Dry, normal turgor, no rashes or lesions noted. ED Treatment Course - LABORATORY CBC & Chemistry Diagram: 05/15/19 10:00 05/15/19 10:00 - RADIOLOGY Radiology Studies Ordered: Category Date Time Status ANKLE-LEFT [RAD] Stat Radiology 05/15/19 09:55 Ordered ANKLE-RIGHT [RAD] Stat Radiology 05/15/19 09:55 Ordered CHEST X-RAY PORTABLE* [RAD] Stat Radiology 05/15/19 09:27 Taken DUPLEX VASCUL US-2LEGS [US] Stat Ultrasound 05/15/19 09:55 Ordered Medical Decision Making - Medical Decision Making 05/15/19 10:18 Mr Shah is a tami 89 -year-old male who appears younger than his stated age presents emergency Department with progressive worsening of lower extremity edema. Patient notes that he previously had intermittent lotion be edema. Now he has consistently noted swelling in his legs. He also has peripheral neuropathy and arthritis. He's unsure if these are continuing to lotion be edema. He denies prior chest pain. He does have shortness of breath. His son in the room states the shortness of breath is related to the weather as opposed to exertion. Patient denies orthopnea. No fevers or chills. No prior history of gout. No signs of cellulitis. No trauma. Further diagnosis includes but is not limited to: Dependent edema, fluid overloading, renal deficiency, DVT, arthritis. Will do: Basic labs including BMP X-ray ankles Duplex Will contact patient's PMD EKG: Sinus rhythm, rate of 75 bpm, axis is normal, intervals are abnormal-MA is prolonged at 284 MS, QRS normal, QTc 431 emesis, no ST elevation or depression, T waves are upright 05/15/19 10:57 Laboratory Tests 05/15/19 05/15/19 05/15/19 10:00 10:00 10:00 WBC 4.5 Hgb 13.4 Hct 40.9 Plt Count 130 L BUN 11.1 Creatinine 1.1 Creatine Kinase 162 Troponin I < 0.02 B-Natriuretic Peptide 501.5 H 05/15/19 11:16 Tylenol for ankle pain 05/15/19 12:01 CXR nml Pt refused tylenol 05/15/19 12:45 Xray: no fracture or dislocation 05/15/19 14:[address] parker Pt can be started on Lasix Will only give 7 days Pt must be seen by PMD for further management Clinical Impression: Arthritis, initial presentation Lower extremity edema, initial presentation *DC/Admit/Observation/Transfer Diagnosis at time of Disposition: Arthritis, Peripheral edema - Discharge Dispostion Disposition: HOME Condition at time of disposition: Stable Decision to Admit order: No - Prescriptions Prescriptions: Furosemide [Lasix] 20 mg PO DAILY #7 tablet - Referrals Referrals: Wilian Zhou MD [Primary Care Provider] - - Patient Instructions Printed Discharge Instructions: DI for Peripheral Edema -- Bilateral, DI for Arthritis Additional Instructions: Mr Shah Thank you for coming in to the ER today It was a pleasure taking care of you Please be sure to start taking Lasix daily I have only given you 1 week of this medication because I want you to follow up with your primary care physician This medication can cause you to be very dehydrated or injure your kidneys Please use tylenol for pain in your ankles Please elevate your legs when you are resting at home Return to the ER for any other concerns or complaints - Post Discharge Activity
[2019-05-15] MEDS ORDERED: ACETAMINOPHEN 325 MG TABLET (FP) ONE (11:19)
[2019-05-15] MEDS ORDERED: LISINOPRIL 10 MG TABLET (FP) PO ONE (13:37)
[2019-05-15] MEDS ORDERED: LISINOPRIL 5 MG TABLET (FP) ONE (13:51)
--- NOTE | 2019-05-15 14:08 | EKG ---
Test Reason : Blood Pressure : / mmHG Vent. 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
[2019-05-15 14:36] VITALS: BP 178/93; PULSE 72; TEMP 98.7
== END 2019-05-15 14:47 | disposition home or self-care (01) ==
LOC: JER 09:03
DX: R60.9 Edema, unspecified (principal); M19.90 Unspecified osteoarthritis, unspecified site; Z87.891 Personal history of nicotine dependence; I10 Essential (primary) hypertension; E78.00 Pure hypercholesterolemia, unspecified; E11.9 Type 2 diabetes mellitus without complications
CPT/HCPCS: 36415; 71045-TC-FY; 73610-TC-LT-FY; 73610-TC-RT-FY; 80053; 82550; 82553; 83880; 84484; 85025; 93005; 93010; 93970-TC; 99284-25